=== PATIENT | female | born 1970 | race Caucasian/White ===

== ENCOUNTER 2018-12-01 13:17 | Emergency (ER) | payer OTHER ==
[2018-12-01 13:32] VITALS: TEMP 98.5
[2018-12-01] MEDS ORDERED: DIPH,PERTUS(ACELL)TETVAC-LF 0.5 ML VIAL IM ONE (14:11)
--- NOTE | 2018-12-01 14:13 | ED ---
Wound/Laceration HPI - General Chief Complaint: Wound/Laceration Stated Complaint: Cut fingers with printed circuit board panels trimmer Time Seen by Provider: 12/01/18 14:01 Source: patient Mode of arrival: ambulatory Limitations: no limitations - History of Present Illness Initial Comments: Patient is a 48-year-old female presenting to the emergency Department with complaints of a laceration to her left ring and middle finger that happened prior to arrival. Patient states she was using hedge trimmers and accidentally cut her left 2 fingers. Bleeding is minimal at this time. Patient denies being on blood thinners. Patient does not remember the last time she had a tetanus vaccine. Patient denies any fever, chills, nausea, vomiting. Patient denies any other injuries at this time. Patient has no other complaints. Upon arrival to ER, vital signs are stable. - Related Data Home Medications Medication Instructions Recorded Confirmed Acetaminophen [Tylenol Arthritis] 650 mg PO DAILY PRN 12/01/18 12/01/18 Fish Oil/Dha/Epa [Fish Oil 1,200 1 cap PO DAILY 12/01/18 12/01/18 mg Fish Oil] Fluticasone Nasal [place] [Flonase 2 spr EA NOSTRIL DAILY 12/01/18 12/01/18 Nasal [place]] Multivitamins, Thera [Multivitamin 1 tab PO DAILY 12/01/18 12/01/18 (formulary)] Turmeric Root Extract [Turmeric] 1,000 mg PO DAILY 12/01/18 12/01/18 Ubidecarenone [Co Q-10] 200 mg PO DAILY 12/01/18 12/01/18 Allergies Allergy/AdvReac Type Severity Reaction Status Date / Time No Known Allergies Allergy Verified 12/01/18 13:50 Review of Systems ROS Statement: Those systems with pertinent positive or pertinent negative responses have been documented in the HPI. ROS Other: All systems not noted in ROS Statement are negative. Past Medical History Past Medical History: No Reported History History of Any Multi-Drug Resistant Organisms: None Reported Additional Past Surgical History / Comment(s): Angela russell- 2008 Past Psychological History: No Psychological Hx Reported Smoking Status: Former smoker Past Alcohol Use History: Occasional Past Drug Use History: None Reported General Exam - General Exam Comments Initial Comments: GENERAL: Well-appearing, well-nourished and in no acute distress. HEAD: Atraumatic, normocephalic. EYES: Pupils equal round and reactive to light, extraocular movements intact, sclera anicteric, conjunctiva are normal. ENT: TMs normal, nares patent, oropharynx clear without exudates. Moist mucous membranes. NECK: Normal range of motion, supple without lymphadenopathy or JVD. LUNGS: Breath sounds clear to auscultation bilaterally and equal. No wheezes rales or rhonchi. HEART: Regular rate and rhythm without murmurs, rubs or gallops. ABDOMEN: Soft, nontender, normoactive bowel sounds. No guarding, no rebound. No masses appreciated. : Deferred EXTREMITIES: Normal range of motion, no pitting or edema. No clubbing or cyanosis. NEUROLOGICAL: Cranial nerves II through XII grossly intact. Normal speech, normal gait. PSYCH: Normal mood, normal affect. SKIN: Warm, Dry, normal turgor. Patient has a 1.5 cm laceration to the palmar aspect of her left ring finger, just distal to PIP joint. Patient also has a 1.5 cm laceration to her left middle finger, just distal to her PIP joint. Bleeding is minimal at this time. Patient has full extension and flexion of her left middle and ring fingers. Patient is neurovascular intact. Limitations: no limitations Course Vital Signs 12/01/18 13:29 Temperature 98.5 F Pulse Rate 104 H Respiratory 18 Rate Blood Pressure 174/112 O2 Sat by Pulse 98 Oximetry Procedures - Laceration Laceration #1 Consent Obtained: verbal consent Indication: laceration Site: hand (Left ring finger, palmar aspect, distal to PIP joint.) Size (cm): 0 (1.5cm) Description: linear Depth: simple, single layer Anesthetic Used: lidocaine 1% Anesthesia Technique: local infiltration Amount (mls): 2 Pre-repair: irrigated extensively Type of Sutures: nylon Size of Sutures: 5-0 Number of Sutures: 5 Technique: simple, interrupted Patient Tolerated Procedure: well Laceration #2 Consent Obtained: verbal consent Indication: laceration Site: hand (Left middle finger, palmar aspect, distal to PIP joint) Size (cm): 0 (1.5cm) Description: linear, flap Depth: simple, single layer Anesthetic Used: lidocaine 1% Anesthesia Technique: local infiltration Amount (mls): 2 Pre-repair: irrigated extensively Type of Sutures: nylon Size of Sutures: 5-0 Number of Sutures: 5 Technique: simple, interrupted Patient Tolerated Procedure: well Medical Decision Making - Medical Decision Making Patient is a 48-year-old female presenting with lacerations to her left middle and ring finger to happen prior to arrival. Patient states she was using a printed circuit board panels trimmer when it slipped and she cut the palmar aspect of her 2 fingers. Patient had a 1.5 cm laceration to the left ring finger, palmar aspect, distal to PIP joint. Patient also has a 1.5 cm laceration to the left middle finger, palmar aspect, distal to PIP joint. Patient has full flexion and extension of both fingers. Neurovascular intact. Hand was soaked in Betadine water solution. Both wounds were closed with 5, 5-0 sutures, for a total of 10 sutures. Patient tolerated procedure well. Patient's tetanus vaccine was updated today. Patient is stable for discharge at this time. Return parameters were discussed with the patient she verbalized understanding. Patient will have sutures removed in 10-12 days. Case discussed with Dr. Mohamud. Disposition Clinical Impression: Laceration of left ring finger, Laceration of left middle finger Disposition: HOME SELF-CARE Condition: Stable Instructions (If sedation given, give patient instructions): Care For Your Stitches (DC), Finger Laceration (ED) Additional Instructions: Please return to the Emergency Department if symptoms worsen or any other con cerns. Sutures need to be removed in 10-12 days. Is patient prescribed a controlled substance at d/c from ED?: No Referrals: None,Stated [Primary Care Provider] - 1-2 days
[2018-12-01] MEDS: LIDOCAINE 1% INJ 10MG/ML (20 ML MDV) SQ ONE ×2 (14:22→14:24)
[2018-12-01] MEDS ORDERED: ACET/COD 300 MG/30 MG STARTER PACK 6 TAB BTL PO STA (15:09)
[2018-12-01 15:46] VITALS: BP 144/83; PULSE 80; RESP 16
== END 2018-12-01 15:30 | disposition home or self-care (01) ==
LOC: EC 13:17
DX: S61.213A Laceration without foreign body of left middle finger without damage to nail, initial encounter (principal); S61.215A Laceration without foreign body of left ring finger without damage to nail, initial encounter; Z87.891 Personal history of nicotine dependence; Z79.899 Other long term (current) drug therapy; Z23 Encounter for immunization; W29.3XXA Contact with powered garden and outdoor hand tools and machinery, initial encounter
CPT/HCPCS: 90715; 99282; 12002; 90471; J2001

== ENCOUNTER → 2022-03-13 | Outpatient (CLI) | payer OTHER ==
--- NOTE | 2022-03-13 14:33 | P.BASOAP ---
Subjective Progress Note Date: 03/13/22 Principal diagnosis: Morbid obesity 52-year-old female known to our service. Patient with history of previous laparoscopic band placement. Patient had issues with food getting caught frequently and ended up having her band emptied in the past. It's been many years since she's had any fluid in her band. Patient is interested in conversion to an alternative bariatric surgery at this point because of persistent obesity. Still says she gets food caught occasionally even though her band is empty. Objective - Vital Signs Vital signs: Intake & Output 03/12/22 03/13/22 03/13/22 18:59 06:59 18:59 Weight 137.892 kg - Exam Abdomen: Soft, nontender, nondistended Assessment/Plan (1) Morbid obesity Narrative/Plan: 52-year-old female with morbid obesity. Patient with history of previous laparoscopic band placement. Patient has not tolerated feels previously. I do agree patient would benefit from conversion to alternate. She procedure. We discussed the options of band to sleeve and band to bypass conversions. Increased risk of intractable reflux and inadequate weight loss with sleeve conversion discussed. She will consider conversion to gastric bypass. She will notify me if she would like an appointment to be seen at [facility] bariatric center. Plan: Date: Initial Weight: Initial BMI: Current Weight: 137.892 kg Current BMI: Type of Surgery: Total Volume in Band: Previous Volume: Volume Removed: Volume Added: Band Size:
[2022-03-13 14:45] VITALS: BP 158/117; PULSE 80; TEMP 98; BMI 53.8
== END ==
LOC: BARWHC3 13:57
PROVIDERS: ATTEND Surgery
DX: E66.01 Morbid (severe) obesity due to excess calories (principal); Z87.891 Personal history of nicotine dependence
CPT/HCPCS: 99211

== ENCOUNTER → 2022-06-06 | Outpatient (CLI) | payer OTHER ==
[2022-06-06 14:25] VITALS: BP 173/106; PULSE 72; TEMP 97.8; BMI 53.1
--- NOTE | 2022-06-06 14:55 | P.HPBAR ---
Bariatric H&P - History & Physicial H&P Date: 06/06/22 History & Physicial: Visit/CC: RYGB consult Patient initial contact: Initial weight: Initial weight in pounds: Height: 5 ft 3 in Initial BMI: Last weight: Current weight: 136.078 kg Current weight in pounds: 300.00 Current BMI: 53.1 [place] body weight (based on NIH guidelines): 52.163 kg Excess body weight loss: The patient is a 52 year-old F who presents for Bariatric Assessment. She is looking into the gastric bypass after band 2007 to 2008. She has the band at present. No GERD. No chest pain. She requires conversion from a band to a gastric bypass. New insurance requirements being asked. Recommend EGD to evaluate band and recommend esophagram. She has [place]. Past Medical History Past Medical History: Hyperlipidemia History of Any Multi-Drug Resistant Organisms: None Reported Additional Past Surgical History / Comment(s): Lap band- 2008 Past Anesthesia/Blood Transfusion Reactions: No Reported Reaction Past Psychological History: No Psychological Hx Reported Smoking Status: Never smoker Past Alcohol Use History: Occasional Past Drug Use History: None Reported Surgical - Exam Vital Signs Temp Pulse BP 97.8 F 72 173/106 06/06/22 14:17 06/06/22 14:17 06/06/22 14:17 Bariatric Checklist Checklist: Plan: Checklist: EGD: 1. Hiatal hernia: 2. H. Pylori: HgbA1c: Vitamin D: Smoking: Former smoker Primary care physician referral: SHERITA Plascencia Psychiatry clearance: Cardiology clearance: Sleep study: Diet journal: VTE risk score: VTE risk level: Rehab needs at discharge:
== END ==
LOC: BARWHC3 13:01
PROVIDERS: ATTEND Surgery Plastic and Reconstructive Surgery
DX: E66.01 Morbid (severe) obesity due to excess calories (principal); E78.5 Hyperlipidemia, unspecified; Z68.43 Body mass index [BMI] 50.0-59.9, adult; Z87.891 Personal history of nicotine dependence
CPT/HCPCS: 99211

== ENCOUNTER → 2022-07-04 | Outpatient (CLI) | payer OTHER ==
[2022-07-04 15:52] LABS: INR 0.9 (<1.2); Prothrombin Time 9.6 sec (9.0-12.0)
[2022-07-04 15:59] LABS: Partial Thromboplastin Time 21.9 sec (22.0-30.0)
[2022-07-04 20:37] LABS: HCT 42.3 % (37.2-46.3); HGB 13.7 g/dL (12.0-15.0); MCHC 32.4 g/dL (32.0-37.0); MCV 92.8 fL (80.0-97.0); NRBC Per 100 WBC 0 /100 WBCS (0.0-0.0); Platelet Count 270 X 10*3/uL (140-440); RBC 4.56 X 10*6/uL (4.10-5.20); RDW 12.9 % (11.5-14.5)
[2022-07-04 21:15] LABS: ALT 30 U/L (8-44); AST 24 U/L (13-35); African American GFR (CKD) 120.8 (60.0-200.0); Albumin 4.2 g/dL (3.8-4.9); Albumin/Globulin Ratio 1.23 (1.60-3.17); Alkaline Phosphatase 89 U/L (41-126); BUN/Creat Ratio 28.57 Ratio (12.00-20.00); Blood Urea Nitrogen 17.8 mg/dL (9.0-27.0); Calcium 9.9 mg/dL (8.7-10.3); Carbon Dioxide 24.4 mmol/L (20.0-27.5); Chloride 103 mmol/L (96-109); Chol/HDL Ratio 4.19 Ratio; Globulin 3.5 g/dL (1.6-3.3); Glucose 94 mg/dL (70-110); LDL Cholesterol,Calculated 118.4 mg/dL (0.0-131.0); Magnesium 2.1 mg/dL (1.5-2.4); Non-African American GFR(CKD) 104.2 (60.0-200.0); Phosphorus 3.9 mg/dL (2.4-5.1); Potassium 4.3 mmol/L (3.5-5.5); Prealbumin 24.6 mg/dL (18.0-42.0); Sodium 139 mmol/L (135-145); Total Protein 7.7 g/dL (6.2-8.2)
[2022-07-05 14:00] LABS: Zinc, Serum 60 ug/dL (60-130)
[2022-07-06 06:25] LABS: Vitamin A 65 ug/dL (38-106)
[2022-07-09 15:12] LABS: Vit B1(Thiamine) 90 ug/L (38-122)
[2022-07-09 16:27] LABS: Anabasine Urine <2.0 ng/mL (<2.0)
[2022-07-10 01:59] LABS: Selenium 160 mcg/L (63-160)
== END | disposition home or self-care (01) ==
LOC: LABWHC1 13:23
PROVIDERS: ATTEND Surgery Plastic and Reconstructive Surgery
DX: Z71.51 Drug abuse counseling and surveillance of drug abuser (principal); E89.1 Postprocedural hypoinsulinemia; D50.8 Other iron deficiency anemias; K91.2 Postsurgical malabsorption, not elsewhere classified; E44.0 Moderate protein-calorie malnutrition; E44.1 Mild protein-calorie malnutrition; E45 Retarded development following protein-calorie malnutrition; E66.01 Morbid (severe) obesity due to excess calories; E46 Unspecified protein-calorie malnutrition; E55.9 Vitamin D deficiency, unspecified; K74.1 Hepatic sclerosis; N19 Unspecified kidney failure; T59.894A Toxic effect of other specified gases, fumes and vapors, undetermined, initial encounter; K50.90 Crohn's disease, unspecified, without complications
CPT/HCPCS: 84255; 84134; 84425; 80061; 80053; 82607; 82525; 82746; 83735; 84100; 84443; 84590; 84630; 85027; 85610; 85730; 82306; 83970; 83036; 93005; 36415; G0480; 80323

== ENCOUNTER 2022-07-30 08:28 | Day surgery (SDC) | payer OTHER ==
[2022-07-25 12:32] VITALS: BMI 53.1
--- NOTE | 2022-07-30 07:45 | P.GSHP ---
History of Present Illness H&P Date: 07/30/22 CHIEF COMPLAINT: GERD HISTORY OF PRESENT ILLNESS: The patient is a 52-year-old female who presents reports gastroesophageal reflux disease. Upper endoscopy was offered for further evaluation and management. PAST MEDICAL HISTORY: Please see list. PAST SURGICAL HISTORY: Please see list. MEDICATIONS: Please see list. ALLERGIES: Please see list. SOCIAL HISTORY: No illicit drug use FAMILY HISTORY: No reports of Crohn disease or ulcerative colitis. REVIEW OF ORGAN SYSTEMS: CONSTITUTIONAL: No reports of fevers or chills. GI: Denies any blood in stools or constipation. PHYSICAL EXAM: VITAL SIGNS: Stable GENERAL: Well-developed and pleasant in no acute distress. HEENT: No scleral icterus. Extraocular movements grossly intact. Moist buccal mucosa. NECK: Supple without lymphadenopathy. CHEST: Unlabored respirations. Equal bilateral excursions. CARDIOVASCULAR: Regular rate and rhythm. Distal 2+ pulses. ABDOMEN: Soft, nondistended. MUSCULOSKELETAL: No clubbing, cyanosis, or edema. ASSESSMENT: 1. Gastroesophageal reflux disease PLAN: 1. Recommend proceeding with an upper endoscopy Past Medical History Past Medical History: Hyperlipidemia History of Any Multi-Drug Resistant Organisms: None Reported Past Surgical History: Bariatric Surgery Additional Past Surgical History / Comment(s): Lap band- 2008 Past Anesthesia/Blood Transfusion Reactions: No Reported Reaction Past Psychological History: No Psychological Hx Reported Smoking Status: Never smoker Past Alcohol Use History: Occasional Past Drug Use History: None Reported Medications and Allergies Home Medications Medication Instructions Recorded Confirmed Type Acetaminophen [Tylenol Arthritis] 650 mg PO DAILY PRN 12/01/18 07/25/22 History Fish Oil/Dha/Epa [Fish Oil 1,200 1 cap PO DAILY 12/01/18 07/25/22 History mg Fish Oil] Multivitamins, Thera [Multivitamin 1 tab PO DAILY 12/01/18 07/25/22 History (formulary)] Turmeric Root Extract [Turmeric] 1,000 mg PO DAILY 12/01/18 07/25/22 History Bergamot Extract [Bergacor] 650 mg PO DAILY 06/06/22 07/25/22 History Semaglutide [Wegovy] 1 mg SQ WEEKLY 06/06/22 07/25/22 History Meloxicam 7.5 mg PO DAILY 07/25/22 07/25/22 History Allergies Allergy/AdvReac Type Severity Reaction Status Date / Time No Known Allergies Allergy Verified 07/25/22 12:19
[2022-07-30 08:53] VITALS: TEMP 98.1
[2022-07-30] MEDS ORDERED: LACTATED RINGERS 1,000 ML IV ONE (09:05)
[2022-07-30] MEDS ORDERED: PROPOFOL 10 MG/ML 20 ML VIAL IV ONE (09:09)
[2022-07-30] MEDS ORDERED: LIDOCAINE 2% INJ 20 MG/ML (2 ML VIAL) ONE (09:09)
[2022-07-30 09:25] VITALS: BP 138/86; PULSE 81; RESP 16
--- NOTE | 2022-07-30 09:28 | P.GSHP ---
History of Present Illness H&P Date: 07/30/22 PREOPERATIVE DIAGNOSIS: Gastroesophageal reflux disease. Morbid obesity. POSTOPERATIVE DIAGNOSIS: Gastroesophageal reflux disease. Morbid obesity. Gastritis. Diaphragmatic hiatal hernia Adjustable gastric band status OPERATION: Esophagogastroduodenoscopy with biopsies along antrum and duodenum SURGEON: Maya Dobson MD ANESTHESIA: MAC. INDICATIONS: The patient is a 52-year-old female who presents with reflux disease. Benefits and risks of the procedure were described. Informed consent was obtained. DESCRIPTION: The patient was brought into the endoscopy suite and laid in the left lateral decubitus position. An Olympus gastroscope was passed along the posterior oropharynx down to the distal esophagus where the squamocolumnar junction was encountered at 35 cm from the incisors. The stomach was entered and no bile reflux was found. Additional findings are listed below. Biopsies with cold forceps were obtained of the antrum. The first through third portion of the duodenum was examined. Retroflexion of the scope confirmed Hill grade 3 lower esophageal valve. The squamocolumnar junction demonstrated LA grade B erosive esophagitis. The stomach was desufflated. The patient tolerated the procedure well. FINDINGS: Squamocolumnar junction 35 cm from the incisors. Diaphragmatic hiatus at 40 cm. Hiatal hernia, 5 cm Hill grade 4 lower esophageal valve. LA grade B erosive esophagitis. No active duodenitis. Adjustable gastric band present without erosion Chronic gastritis with recent bleed RECOMMENDATIONS: Upper endoscopy as needed. Past Medical History Past Medical History: Hyperlipidemia History of Any Multi-Drug Resistant Organisms: None Reported Past Surgical History: Bariatric Surgery Additional Past Surgical History / Comment(s): Lap band- 2008 Past Anesthesia/Blood Transfusion Reactions: No Reported Reaction Past Psychological History: No Psychological Hx Reported Smoking Status: Never smoker Past Alcohol Use History: Occasional Past Drug Use History: None Reported Medications and Allergies Home Medications Medication Instructions Recorded Confirmed Type Acetaminophen [Tylenol Arthritis] 650 mg PO DAILY PRN 12/01/18 07/30/22 History Fish Oil/Dha/Epa [Fish Oil 1,200 1 cap PO DAILY 12/01/18 07/30/22 History mg Fish Oil] Multivitamins, Thera [Multivitamin 1 tab PO DAILY 12/01/18 07/30/22 History (formulary)] Turmeric Root Extract [Turmeric] 1,000 mg PO DAILY 12/01/18 07/30/22 History Bergamot Extract [Bergacor] 650 mg PO DAILY 06/06/22 07/30/22 History Semaglutide [Wegovy] 1 mg SQ WEEKLY 06/06/22 07/30/22 History Meloxicam 7.5 mg PO DAILY 07/25/22 07/30/22 History Allergies Allergy/AdvReac Type Severity Reaction Status Date / Time No Known Allergies Allergy Verified 07/30/22 08:47 Surgical - Exam Vital Signs Temp Pulse Resp BP Pulse Ox 98.1 F 88 18 155/89 97 07/30/22 08:51 07/30/22 08:51 07/30/22 08:51 07/30/22 08:51 07/30/22 08:51
--- NOTE | 2022-07-30 09:31 | P.PCN ---
Date of Procedure: 07/30/22 Description of Procedure: PREOPERATIVE DIAGNOSIS: Gastroesophageal reflux disease. Morbid obesity. POSTOPERATIVE DIAGNOSIS: Gastroesophageal reflux disease. Morbid obesity. Gastritis. Diaphragmatic hiatal hernia Adjustable gastric band status OPERATION: Esophagogastroduodenoscopy with biopsies along antrum and duodenum SURGEON: Maya Dobson MD ANESTHESIA: MAC. INDICATIONS: The patient is a 52-year-old female who presents with reflux disease. Benefits and risks of the procedure were described. Informed consent was obtained. DESCRIPTION: The patient was brought into the endoscopy suite and laid in the left lateral decubitus position. An Olympus gastroscope was passed along the posterior [place] pharynx down to the distal esophagus where the squamocolumnar junction was encountered at 35 cm from the incisors. The stomach was entered and no bile reflux was found. Additional findings are listed below. Biopsies with cold forceps were obtained of the antrum. The first through third portion of the duodenum was examined. Retroflexion of the scope confirmed Hill grade 3 lower esophageal valve. The squamocolumnar junction demonstrated LA grade B erosive esophagitis. The stomach was desufflated. The patient tolerated the procedure well. FINDINGS: Squamocolumnar junction 35 cm from the incisors. Diaphragmatic hiatus at 40 cm. Hiatal hernia, 5 cm Hill grade 4 lower esophageal valve. LA grade B erosive esophagitis. No active duodenitis. Adjustable gastric band present without erosion Chronic gastritis with recent bleed RECOMMENDATIONS: Upper endoscopy as needed. Plan - Discharge Summary Discharge Rx Participant: No New Discharge Prescriptions: Continue Acetaminophen [Tylenol Arthritis] 650 mg PO DAILY PRN PRN Reason: Pain Turmeric Root Extract [Turmeric] 1,000 mg PO DAILY Multivitamins, Thera [Multivitamin (formulary)] 1 tab PO DAILY Fish Oil/Dha/Epa [Fish Oil 1,200 mg Fish Oil] 1 cap PO DAILY Semaglutide [Wegovy] 1 mg SQ WEEKLY Bergamot Extract [Bergacor] 650 mg PO DAILY Meloxicam 7.5 mg PO DAILY Discharge Medication List Acetaminophen [Tylenol Arthritis] 650 mg PO DAILY PRN 12/01/18 [History] Fish Oil/Dha/Epa [Fish Oil 1,200 mg Fish Oil] 1 cap PO DAILY 12/01/18 [History] Multivitamins, Thera [Multivitamin (formulary)] 1 tab PO DAILY 12/01/18 [History] Turmeric Root Extract [Turmeric] 1,000 mg PO DAILY 12/01/18 [History] Bergamot Extract [Bergacor] 650 mg PO DAILY 06/06/22 [History] Semaglutide [Wegovy] 1 mg SQ WEEKLY 06/06/22 [History] Meloxicam 7.5 mg PO DAILY 07/25/22 [History] [place] Patient Instructions/Handouts: Hiatal Hernia (DC) Discharge Disposition: HOME SELF-CARE
== END 2022-07-30 10:00 | disposition home or self-care (01) ==
LOC: ORWHC2ENDO 08:28
PROVIDERS: ATTEND Surgery Plastic and Reconstructive Surgery
DX: K29.50 Unspecified chronic gastritis without bleeding (principal); K21.9 Gastro-esophageal reflux disease without esophagitis; K44.9 Diaphragmatic hernia without obstruction or gangrene; E66.01 Morbid (severe) obesity due to excess calories; E78.5 Hyperlipidemia, unspecified; Z86.59 Personal history of other mental and behavioral disorders; Z79.1 Long term (current) use of non-steroidal anti-inflammatories (NSAID); Z79.899 Other long term (current) drug therapy; Z68.43 Body mass index [BMI] 50.0-59.9, adult
CPT/HCPCS: 43239; J2704; J2001; 88305

== ENCOUNTER → 2022-08-15 | Outpatient (CLI) | payer OTHER ==
[2022-08-15 13:11] VITALS: BP 173/118; PULSE 99; TEMP 98.2; BMI 52.9
--- NOTE | 2022-08-15 13:59 | P.BASOAP ---
Subjective Progress Note Date: 08/15/22 Needs conversion to bypass from band. She has troubles with her band. She has hypertensive heart disease, persistent of 173/118. She reports sleep apnea. She has high cholesterol. Recommend 2 stage procedure for best safety profile from band to bypass. Chele has her gallbladder. Must look at gallbladder for any further issues interoperatively. Objective - Vital Signs Vital signs: Vital Signs Temp 98.2 F 08/15/22 13:08 Pulse 99 08/15/22 13:08 Resp BP 173/118 08/15/22 13:08 Pulse Ox FiO2 Intake & Output 08/14/22 08/15/22 08/15/22 18:59 06:59 18:59 Weight 135.624 kg Assessment/Plan Plan: Date: 08/15/22 Initial Weight: Initial BMI: Current Weight: 135.624 kg Current BMI: 52.9 Type of Surgery: Total Volume in Band: Previous Volume: Volume Removed: Volume Added: Band Size:
== END ==
LOC: BARWHC3 12:47
PROVIDERS: ATTEND Surgery Plastic and Reconstructive Surgery
DX: E66.01 Morbid (severe) obesity due to excess calories (principal); Z46.51 Encounter for fitting and adjustment of gastric lap band; Z68.43 Body mass index [BMI] 50.0-59.9, adult; Z87.891 Personal history of nicotine dependence
CPT/HCPCS: 99211

== ENCOUNTER → 2022-08-27 | Outpatient (CLI) | payer OTHER ==
[2022-08-27 10:53] VITALS: BMI 52.4
--- NOTE | 2022-08-27 11:00 | XR ---
EXAMINATION TYPE: XR chest 1V DATE OF EXAM: 08/27/2022 COMPARISON: NONE HISTORY: Preop TECHNIQUE: Single frontal view of the chest is obtained. FINDINGS: There is no focal air space opacity, pleural effusion, or pneumothorax seen. The cardiac silhouette size is within normal limits. The osseous structures are intact. A postsurgical change s uggestive of lap band surgery noted. There is hyperinflation suggestive of COPD. IMPRESSION: No acute process. Correlate for asthma or COPD.
== END ==
LOC: BARWHC3 08:39
PROVIDERS: ATTEND Surgery Plastic and Reconstructive Surgery
DX: E66.01 Morbid (severe) obesity due to excess calories (principal); G47.33 Obstructive sleep apnea (adult) (pediatric); Z68.43 Body mass index [BMI] 50.0-59.9, adult; Z87.891 Personal history of nicotine dependence; Z71.3 Dietary counseling and surveillance
CPT/HCPCS: 71045; 97804

== ENCOUNTER → 2022-11-21 | Outpatient (CLI) | payer OTHER ==
[2022-11-21 16:05] LABS: ALT 34 U/L (8-44); AST 30 U/L (13-35); Albumin 4.3 d/dL (3.8-4.9); Alkaline Phosphatase 68 U/L (41-126); BUN/Creat Ratio 23.33 Ratio (12.00-20.00); Calcium 9.4 mg/dL (8.7-10.3); Carbon Dioxide 20.8 mmol/L (21.6-31.8); Chloride 107 mmol/L (96-109); Globulin 3.3 d/dL (1.6-3.3); Glucose 87 mg/dL (70-110); Potassium 4.3 mmol/L (3.5-5.5); Sodium 141 mmol/L (135-145); Total Bilirubin 0.5 mg/dL (0.3-1.2); Total Protein 7.6 d/dL (6.2-8.2)
[2022-11-21 16:29] LABS: HGB 13.7 d/dL (12.0-15.0); MCH 30.4 pg (27.0-32.0); MCHC 32.6 d/dL (32.0-37.0); MCV 93.1 FL (80.0-97.0); Mean Platelet Volume 11.1 FL (9.5-12.2); NRBC Per 100 WBC 0 X 10*3/uL (0.00-0.01); Platelet Count 287 X 10*3/uL (140-440); RBC 4.51 X 10*6/uL (4.10-5.20); RDW 12.7 % (11.5-14.5)
[2022-11-21 16:30] LABS: Basophils # (A) 0.08 X 10*3/uL (0.00-0.10); Basophils % (A) 1.4 %; Eosinophils # (A) 0.16 X 10*3/uL (0.04-0.35); Eosinophils % (A) 2.8 %; Lymphocytes # (A) 2.31 X 10*3/uL (0.90-5.00); Lymphocytes % (A) 40.5 %; Monocytes # (A) 0.48 X 10*3/uL (0.20-1.00); Monocytes % (A) 8.4 %; Neutrophils # (A) 2.64 X 10*3/uL (1.80-7.70); Neutrophils % (A) 46.4 %
== END | disposition home or self-care (01) ==
LOC: LABPAT 10:10
PROVIDERS: ATTEND Surgery Plastic and Reconstructive Surgery
DX: Z01.812 Encounter for preprocedural laboratory examination (principal)
CPT/HCPCS: 80053; 85025

== ENCOUNTER 2022-11-23 12:45 | Day surgery (SDC) | payer OTHER ==
[2022-11-22 09:42] VITALS: BMI 48.0
--- NOTE | 2022-11-23 11:59 | P.GSHP ---
History of Present Illness H&P Date: 11/23/22 CHIEF COMPLAINT: Complications adjustable gastric band HISTORY OF PRESENT ILLNESS: The patient is a 52-year-old female who presents with morbid obesity. Has adjustable gastric band erosions over one year. He has chronic dysphagia and intolerance to band adjustments. Now she presents for surgical intervention. PAST MEDICAL HISTORY: Please see list PAST SURGICAL HISTORY: Please see list MEDICATIONS: Please see list ALLERGIES: Please see list SOCIAL HISTORY: Please see list FAMILY HISTORY: Please see list REVIEW OF ORGAN SYSTEMS: CONSTITUTIONAL: No reports of fevers or chills. HEENT: Denies any troubles with the vision or hearing. ENDOCRINE: No reports of hypothyroidism. No diabetes. RESPIRATORY: No recent pneumonias. CARDIOVASCULAR: Denies chest pain or palpitations GI: No blood in stools or constipation. MUSCULOSKELETAL: Has occasional joint pain including back pain. NEURO: No seizure disorders or headaches. No recent stroke. PSYCH: No depression or suicidal ideation. GENITOURINARY: No active blood in urine. No urinary hesitancy. HEMATOLOGIC: No personal or family history of DVTs or pulmonary emboli. SKIN: No skin cancer. PHYSICAL EXAM: VITAL SIGNS: Afebrile vital signs stable GENERAL: Well-developed pleasant in no acute distress. HEENT: No scleral icterus. Extraocular movements grossly intact. Moist buccal mucosa. NECK: Supple without lymphadenopathy. CHEST: Unlabored respirations. Equal bilateral excursions. CARDIOVASCULAR: Regular rate regular rhythm rhythm. Distal 2+ pulses. ABDOMEN: Soft, nondistended. MUSCULOSKELETAL: No clubbing, cyanosis, or edema. NEURO: Cranial nerves II to XII within normal limits. No focal or lateralizing signs. PSYCH: Alert and oriented to person, place and time. SKIN: Well-perfused good skin turgor. ASSESSMENT: 1. Morbid obesity due to excess calories, BMI 48.1 2. Complications of adjustable gastric band PLAN: 1. Will need a robotic palpable adjustable gastric band possible open. Benefits and risks were described. 2. Heparin for DVT prophylaxis 5000 units. 3. Antibiotic prophylaxis. 4. CBC and CMP on day of procedure 5. Non-narcotic pre and post op pain management reviewed. Past Medical History Past Medical History: Hyperlipidemia History of Any Multi-Drug Resistant Organisms: None Reported Past Surgical History: Bariatric Surgery Additional Past Surgical History / Comment(s): Lap band- 2008 Past Anesthesia/Blood Transfusion Reactions: No Reported Reaction Past Psychological History: No Psychological Hx Reported Smoking Status: Never smoker Past Alcohol Use History: Occasional Past Drug Use History: None Reported - Past Family History Mother Family Medical History: No Reported History Medications and Allergies Home Medications Medication Instructions Recorded Confirmed Type Semaglutide [Wegovy] 1 mg SQ WEEKLY 06/06/22 11/22/22 History Meloxicam 7.5 mg PO DAILY 07/25/22 11/22/22 History Allergies Allergy/AdvReac Type Severity Reaction Status Date / Time No Known Allergies Allergy Verified 11/22/22 09:37
[~2022-11-23 12:45] MED LIST: ACETAMINOPHEN TAB 500 MG TAB PO PRN; HEPARIN SODIUM,PORCINE/PF 5,000 UNIT/0.5 ML SYRINGE SQ PRN; LACTATED RINGERS 1,000 ML IV SCH; ONDANSETRON 4 MG/2 ML VIAL IVP PRN; SCOPOLAMINE 1 MG/72 HR PATCH TRANSDERM STA; ceFAZolin 3 GM in SODIUM CHLORIDE 0.9% 100 ML IVPB PRN
[2022-11-23] MEDS ORDERED: ONDANSETRON 4 MG/2 ML VIAL IVP ONE (13:37)
[2022-11-23] MEDS ORDERED: DEXAMETHASONE SOD PHOSPHATE 4 MG/ML 1 ML VIAL IVP ONE (13:38)
[2022-11-23] MEDS ORDERED: SUCCINYLCHOLINE CHLORIDE 200 MG/10 ML VIAL IV ONE (13:52)
[2022-11-23] MEDS ORDERED: fentaNYL (PF) 50 MCG/ML 2 ML AMP ONE (13:52)
[2022-11-23] MEDS ORDERED: PROPOFOL 10 MG/ML 20 ML VIAL IV ONE (13:52)
[2022-11-23] MEDS ORDERED: GLYCOPYRROLATE 0.2 MG/ML 2 ML VIAL ONE (13:52)
[2022-11-23] MEDS ORDERED: NEOSTIGMINE 1 MG/ML 10 ML VIAL ONE (13:52)
[2022-11-23] MEDS ORDERED: LIDOCAINE 2% INJ 20 MG/ML (2 ML VIAL) ONE (13:52)
[2022-11-23] MEDS ORDERED: ROCURONIUM 10 MG/ML (5 ML VIAL) IV ONE (13:52)
[2022-11-23] MEDS ORDERED: MIDAZOLAM 2 MG/2 ML VIAL ONE (13:52)
[2022-11-23] MEDS ORDERED: BUPIVACAINE (PF) 0.5% 30 ML VIAL SQ ONE ×2 (14:20→14:24)
[2022-11-23 15:48] VITALS: TEMP 97
[2022-11-23] MEDS ORDERED: HYDROmorphone 0.5 MG/0.5 ML SYRINGE IVP ONE ×2 (16:06→16:17)
--- NOTE | 2022-11-23 16:39 | P.OP ---
Date of Procedure: 11/23/22 Description of Procedure: SURGEON: KIKA RICHARD MD PREOPERATIVE DIAGNOSES: 1. Morbid obesity due to excess calories 2. Body mass index of 49.4 3. Gastroesophageal reflux disease 4. Dysphagia 5. Complications from adjustable gastric band POSTOPERATIVE DIAGNOSES: 1. Morbid obesity due to excess calories 2. Body mass index of 49.4 3. Gastroesophageal reflux disease 4. Dysphagia 5. Complications from adjustable gastric band 6. Severe perigastric adhesions 7. Severe epigastric OPERATION: 1. Robotic-assisted da Jalyn Xi laparoscopic lysis of adhesions over 30 minutes. 2. Esophagogastroduodenoscopy with cold forcep biopsies duodenum and antrum (see separate procedure note) 3. Robotic-assisted da Jalyn Xi laparoscopic removal of adjustable gastric band and all components. ANESTHESIA: General with local anesthetic. ESTIMATED BLOOD LOSS: 5 mL SPECIMENS REMOVED: 1. Adjustable gastric band and components 2. Duodenal 3. Antrum Condition: stable Disposition: same day COMPLICATIONS: None. Operative Findings: 1. Adjustable gastric band port found along the epigastrium removed in total 2. Densely encased adjustable gastric band removed in total 3. Severe perigastric and epigastric intra-abdominal adhesions from adjustable gastric band INDICATIONS: The patient is a 52-year-old male who presents with complications of her adjustable gastric band. Surgical options were described including removal of the band. As she has persistent pain and discomfort from the band, removal of the adjustable gastric band and port including all components was proposed. Benefits and risks of the procedure were described. Informed consent was obtained. DESCRIPTION: The patient was brought into the operating room theater. She was placed supine. She had received heparin subcutaneously for DVT prophylaxis. Additionally she Peridex oral solution as an oral decontaminant was placed per anesthesia. After general induction, the abdomen was prepped and draped in standard sterile fashion. Ioban draping was placed along the abdomen. A robotic da Jalyn Xi system was prepped and primed. Prior to incision, a timeout protocol was performed and confirmed with the surgical team. Attention was brought to the abdomen where the port was palpated along the epigastrium. After localizing the skin, transverse 3 cm incision was made over the adjustable gastric band port and circumferentially dissected free using Bovie cautery and blunt dissection. Attention was now brought to the intra-abdominal component of the procedure for the removal of the adjustable gastric band. Incisions were proposed at 12 cm from the xiphoid. Proposed port sites were marked with indelible marker along the anterior axillary line bilaterally, mid clavicular line bilaterally with each port marked 10 cm from each other. A 5 mm 0 degrees laparoscopic trocar entry was performed along the left upper quadrant. The abdomen was insufflated to 15 mmHg pressure, which she tolerated well. Diagnostic laparoscopy demonstrated no injury to bowel, viscera, or mesentery. An 8 mm camera port was placed left lateral to the umbilicus at the epigastrium, 12 cm distal to the xiphoid. Next, 8-mm port was placed along the right mid abdomen. The 5 mm port was exchanged for 12 mm trocar. The robot was docked along the left lateral abdomen. The patient was repositioned in reverse Trendelenburg position, 21-degrees. A 30-degree camera was used. Using graspers for arm 3, including scissors with cautery for arm 1, and hook cautery was used for arm 4. the robotic system was docked and primed as described. Instruments were interchanged by the delinquent tax collection assistant. I had sat at the console. Adjustable gastric band was embedded into dense cicatrix which was carefully dissected free. Additionally, the buckle of the adjustable gastric band was densely adherent to the deep tissue requiring cutting the band away from the buckle. The port was followed with its tubing to the gastric band. The gastrohepatic ligament was scarred from prior surgery. The cicatrix around the adjustable gastric band was carefully dissected free. The anti-prolapse stitch was intact. Using hot cautery, the cicatrix of the port was incised. The band was then freed. Allergan adjustable gastric band was removed in total. Care was taken to avoid any gastrotomies. The band buckle was cut. I then went to the head of the bed to perform intraoperative esophagogastroduodenoscopy to evaluate for gastritis and any full thickness injury to the stomach. An Olympus gastroscope was passed from the posterior oropharynx down to the esophagus, where the squamocolumnar junction was found LA grade C erosive esophagitis, chronic changes. The stomach was entered. Mild chronic gastritis was found along the antrum with biopsies obtained of the antrum and duodenal. Retroflexion of the scope confirmed a Hill grade 2 lower esophageal valve. No full-thickness erosion from the prior band was encountered. The stomach was desufflated. The patient tolerated the procedure well. No evidence of leak was encountered from the removal of the band. The scope was removed with desufflation of the stomach. I re-scrubbed into the case. The port and band were removed in total without injury to the stomach via the epigastrium including the cut buckle. Hemostasis was excellent. Diagnostic laparoscopy demonstrated complete removal of all foreign body. All instruments and pneumoperitoneum were evacuated from the abdominal cavity. The port extraction site was hemostatic. The port site was irrigated using normal saline and hydrogen peroxide. The incisions were reapproximated using 4- 0 Monocryl in a subcuticular interrupted fashion. Optifoam dressing was placed over the port extraction site. At the end of the procedure, needle, sponge and instrument counts were verified correct by the cardiovascular surgical tech. The patient had tolerated the procedure well. An abdominal binder was placed. The patient was transferred to Postanesthesia Care Unit in stable condition. Postoperative findings with intraoperative images were discussed with the patient's family who were pleased with the level of care. Plan - Discharge Summary Discharge Rx Participant: No New Discharge Prescriptions: New Simethicone [Gas-X] 125 mg PO AC-TID PRN #20 capsule PRN Reason: Pain Ibuprofen [Motrin] 600 mg PO Q8HR PRN #30 tab PRN Reason: Pain Acetaminophen Tab [Tylenol Tab] 1,000 mg PO Q6HR PRN #30 tablet PRN Reason: Pain Continue Semaglutide [Wegovy] 1 mg SQ WEEKLY Meloxicam 7.5 mg PO DAILY Discharge Medication List Semaglutide [Wegovy] 1 mg SQ WEEKLY 06/06/22 [History] Meloxicam 7.5 mg PO DAILY 07/25/22 [History] Acetaminophen Tab [Tylenol Tab] 1,000 mg PO Q6HR PRN #30 tablet 11/23/22 [Rx] Ibuprofen [Motrin] 600 mg PO Q8HR PRN #30 tab 11/23/22 [Rx] Simethicone [Gas-X] 125 mg PO AC-TID PRN #20 capsule 11/23/22 [Rx] Follow up Appointment(s)/Referral(s): [place], [place] [NON-STAFF] - 11/28/22 Patient Instructions/Handouts: Adjustable Gastric Band Removal (GEN), Nutrition after Bariatric Surgery (DC) Activity/Diet/Wound Care/Special Instructions: No lifting over 10 pounds in 2 weeks until Dec 07July shower. No bath tub soaks for two weeks until Dec 07 Diet as tolerated. Use Tylenol, simethicone and ibuprofen or Aleve scheduled for the next 24-48 hours for best pain relief. Use ice along incisions for today to prevent swelling. Discharge Disposition: HOME SELF-CARE
[2022-11-23 17:07] VITALS: RESP 18
[2022-11-23 17:33] VITALS: BP 167/98; PULSE 94
== END 2022-11-23 17:50 | disposition home or self-care (01) ==
LOC: OR 12:45
PROVIDERS: ATTEND Surgery Plastic and Reconstructive Surgery
DX: K29.50 Unspecified chronic gastritis without bleeding (principal); K95.09 Other complications of gastric band procedure; E66.01 Morbid (severe) obesity due to excess calories; E78.5 Hyperlipidemia, unspecified; K21.9 Gastro-esophageal reflux disease without esophagitis; Z98.84 Bariatric surgery status; Z68.42 Body mass index [BMI] 45.0-49.9, adult; Y83.8 Other surgical procedures as the cause of abnormal reaction of the patient, or of later complication, without mention of misadventure at the time of the procedure
CPT/HCPCS: 43239; 81025; 88305; J2250; J0330; J1100; J2710; J0690; J2405; J3010; J2704; J1170; J1644; J2001; J0665

== ENCOUNTER → 2022-12-27 | Outpatient (CLI) | payer OTHER ==
[2022-12-27 16:54] LABS: Basophils # (A) 0.08 X 10*3/uL (0.00-0.10); Eosinophils # (A) 0.47 X 10*3/uL (0.04-0.35); Eosinophils % (A) 5.6 %; HCT 47.2 % (37.2-46.3); HGB 15.3 d/dL (12.0-15.0); Lymphocytes # (A) 2.15 X 10*3/uL (0.90-5.00); Lymphocytes % (A) 25.7 %; MCH 30.7 pg (27.0-32.0); MCHC 32.4 d/dL (32.0-37.0); MCV 94.6 FL (80.0-97.0); Mean Platelet Volume 11.5 FL (9.5-12.2); Monocytes # (A) 0.68 X 10*3/uL (0.20-1.00); Monocytes % (A) 8.1 %; NRBC Per 100 WBC 0 X 10*3/uL (0.00-0.01); Neutrophils # (A) 4.97 X 10*3/uL (1.80-7.70); Neutrophils % (A) 59.2 %; Platelet Count 187 X 10*3/uL (140-440); RBC 4.99 X 10*6/uL (4.10-5.20); RBC Morphology Normal (Normal); RDW 13.1 % (11.5-14.5); WBC 8.38 X 10*3/uL (4.50-10.00)
[2022-12-27 17:54] LABS: ALT 47 U/L (8-44); AST 57 U/L (13-35); Albumin 4.4 d/dL (3.8-4.9); Albumin/Globulin Ratio 1.13 Ratio (1.60-3.17); Alkaline Phosphatase 76 U/L (41-126); Blood Urea Nitrogen 15.4 mg/dL (9.0-27.0); Carbon Dioxide 21.9 mmol/L (21.6-31.8); Chloride 102 mmol/L (96-109); Globulin 3.9 d/dL (1.6-3.3); Glucose 100 mg/dL (70-110); Potassium 5.4 mmol/L (3.5-5.5); Sodium 137 mmol/L (135-145); Total Bilirubin 0.4 mg/dL (0.3-1.2); Total Protein 8.3 d/dL (6.2-8.2)
== END | disposition home or self-care (01) ==
LOC: LABPAT 09:06
PROVIDERS: ATTEND Surgery Plastic and Reconstructive Surgery
DX: Z01.812 Encounter for preprocedural laboratory examination (principal)
CPT/HCPCS: 80053; 85025; 86850; 86900; 86901

== ENCOUNTER → 2023-01-02 | Outpatient (CLI) | payer OTHER ==
[2023-01-02 16:54] VITALS: BMI 49.4
--- NOTE | 2023-01-02 17:25 | P.BASOAP ---
Subjective Progress Note Date: 01/02/23 She has moderate scar tissue. Wants to do weight loss. 3 weeks weight loss advised. Plan for surgery in March. She has constipation. Lactulose prescribed Objective - Vital Signs Vital signs: Intake & Output 01/01/23 01/02/23 01/02/23 18:59 06:59 18:59 Weight 126.552 kg Assessment/Plan Plan: Date: 01/02/23 Initial Weight: Initial BMI: Current Weight: 126.552 kg Current BMI: 49.4 Type of Surgery: Total Volume in Band: Previous Volume: Volume Removed: Volume Added: Band Size:
== END ==
LOC: BARWHC3 16:01
PROVIDERS: ATTEND Surgery Plastic and Reconstructive Surgery
DX: Z53.9 Procedure and treatment not carried out, unspecified reason (principal)
CPT/HCPCS: 99211

== ENCOUNTER 2023-04-01 12:00 | Inpatient (IN) | payer OTHER ==
--- NOTE | 2023-04-22 06:05 | P.GSHP ---
History of Present Illness H&P Date: 04/22/23 CHIEF COMPLAINT: Morbid obesity HISTORY OF PRESENT ILLNESS: Lyssa Haley is a 53 -year-old female who comes with lifelong morbid obesity. As result of morbid obesity, she has developed osteoarthritis of the hips and knees. She has completed medical supervised weight loss. She completed medical including cardiac assessment. She has completed psychological risk assessment. She had removal of adjustable gastric band including lysis of adhesions. She elected for gastric bypass with removal increased risks. At height of 5 feet 3 inches, her ideal body weight is 140 pounds. Her highest weight 303 pounds, BMI 53.8. She comes in 270 pounds. Her body mass index is 46.3. She is 126 pounds overweight. PAST MEDICAL HISTORY: 1. Morbid obesity due to excess calories 2. Body mass index of 53.8 3. Osteoarthritis of the knees. 4. Osteoarthritis of the lower back. 5. Hypertensive heart disease. PAST SURGICAL HISTORY: 1. Adjustable gastric band placement and subsequent removal 2. Upper endoscopy 3. Lysis of adhesions HOME MEDICATIONS: Reviewed ALLERGIES: Reviewed SOCIAL HISTORY: Past tobacco use. FAMILY HISTORY: No family history of ulcerative colitis disease or Crohn's disease. Family history of morbid obesity. No lupus in the family. No reports of stomach or esophageal cancer. REVIEW OF ORGAN SYSTEMS: CONSTITUTIONAL: At height of 5 feet 3 inches, her ideal body weight is 140 pounds. Her highest weight 303 pounds, BMI 53.8. HEENT: Denies any active troubles with vision or hearing. ENDOCRINE: Has diabetes. Has hypothyroidism. CARDIOVASCULAR: Past reports of palpitations or heart attacks or chest pain. RESPIRATORY: Has daytime somnolence. GASTROINTESTINAL: Denies any bright red blood per rectum. Has gastroesophageal reflux disease. MUSCULOSKELETAL: Has lower back pain and joint pain. Has osteoarthritis of the knees. NEURO: No headaches. No seizure disorders. PSYCH: Has depression. No suicidal ideation. RHEUMATOLOGIC: No lupus. No rheumatoid arthritis. HEMATOLOGIC: Denies any abnormal bleeding or bruising. No personal history of DVTs. SKIN: Has rash. No skin cancer. PHYSICAL EXAM: VITAL SIGNS: Height 5 foot 4 inches, weight 270 pounds. BMI 46.3 GENERAL: Well-developed in no acute distress. HEENT: No scleral icterus. Extraocular movements grossly intact. Hears conversational speech. No nasal drainage. NECK: Supple without lymphadenopathy. CHEST: Nonlabored respirations with equal bilateral excursions. CARDIOVASCULAR: Regular rate and regular rhythm. Distal 2+ pulses. ABDOMEN: Obese, soft, nontender, nondistended. MUSCULOSKELETAL: No clubbing, cyanosis. NEURO: No focal or lateralizing signs. Cranial nerves 2 through 12 grossly within normal limits. PSYCH: Appropriate affect. Alert and oriented to person, place and time. SKIN: Good skin turgor. Well perfused. STUDIES: Ultrasound of the gallbladder dependent reviewed demonstrates fatty liver disease without gallstones. This is my independent interpretation. HIDA scan independent review demonstrates Gallbladder, ejection fraction of 90%. This is muscular. Interpretation. LABS: WBC within normal limits. LFTs within normal limits. EKG: Normal sinus rhythm, June 2022 Final Pathologic Diagnosis A. GASTRIC ANTRUM, BIOPSY: Mild chronic gastritis. Helicobacter pylori organisms are not identified on routine H+E sections. B. DUODENUM, BIOPSY: Benign small bowel mucosa with intact villous architecture, negative for histopathologic abnormality. ASSESSMENT: 1. Morbid obesity due to excess calories 2. Body mass index of 53.8 to 46.3 3. Osteoarthritis of the knees. 4. Osteoarthritis of the lower back. 5. Hypertensive heart disease. PLAN: 1. Bariatric options between a sleeve and a Mirtha-en-Y gastric bypass were reviewed in detail. The patient elected for a gastric bypass. Robotic assisted approach described. 2. The [place] [facility] Data was also reviewed with benefits and risks as described. 3. An 8 page second-generation bariatric consent form was reviewed in detail including potential of bleeding, infection, leaks, adequate weight loss, nutritional deficiencies which the patient demonstrated understanding of the risks. 4. A 2 week high-protein low caloric 800 kcal diet described to address hepatomegaly. 5. Preoperative labs including complete metabolic panel and CBC with type and screen recommended. 6. DVT prophylaxis per [place] [facility]. 7. Antibiotic prophylaxis. 8. Inpatient hospitalization anticipated for more than 2 nights. 9. All questions and concerns were addressed with the patient. 10. She is at elevated risk for perioperative complications due to recent prior gastric surgery included an adjustable gastric band and increased risk for leaks. 11. Overall, patient has expressed understanding of bariatric care including postoperative diet and commitment of lifestyle. Patient should benefit from surgical intervention for correction of her morbid obesity. 12. Recommend inpatient hospitalization due to high-risk procedure Past Medical History Past Medical History: Hyperlipidemia History of Any Multi-Drug Resistant Organisms: None Reported Past Surgical History: Bariatric Surgery Additional Past Surgical History / Comment(s): Lap band- 2008 WITH REMOVAL. lysis of adhesions 12/31/22. EGD Past Anesthesia/Blood Transfusion Reactions: No Reported Reaction Smoking Status: Never smoker - Past Family History Mother Family Medical History: No Reported History Father Family Medical History: Cancer Medications and Allergies Home Medications Medication Instructions Recorded Confirmed Type Semaglutide [Wegovy] 1 mg SQ SA 06/06/22 04/15/23 History Meloxicam 7.5 mg PO DAILY 07/25/22 04/15/23 History Collagen Gummy 1 dose PO DAILY 12/25/22 04/15/23 History Acetaminophen Tab [Tylenol Tab] 1,000 mg PO Q6HR PRN #30 tablet 12/31/22 04/15/23 Rx Fluticasone Nasal [place] [Flonase 2 spray EA NOSTRIL DAILY 01/02/23 04/15/23 History Nasal [place]] Glucosamine/Chondr [place] A Sod [Osteo 1 each PO DAILY 01/02/23 04/15/23 History Bi-Flex Caplet] Loratadine [Claritin] 10 mg PO DAILY 01/02/23 04/15/23 History Multivitamins, Thera [Multivitamin 1 tab PO DAILY 01/02/23 04/15/23 History (formulary)] [place]-3/Dha/Epa/Fish Oil [Fish Oil 1 each PO DAILY 01/02/23 04/15/23 History 1,000 mg Softgel] Soy Isofla/Blk [place]/Mag Bark 155 mg PO DAILY 01/02/23 04/15/23 History [Estroven 155 mg Capsule] Turmeric Root Extract [Turmeric] 500 mg PO DAILY 01/02/23 04/15/23 History Allergies Allergy/AdvReac Type Severity Reaction Status Date / Time No Known Allergies Allergy Verified 04/15/23 11:42
[2023-04-22] MEDS ORDERED: MIDAZOLAM 2 MG/2 ML VIAL IV PRN (07:20)
[2023-04-22] MEDS: ALVIMOPAN 12 MG CAPSULE PO PRN (07:59)
[2023-04-22] MEDS: LACTATED RINGERS 1,000 ML IV SCH (07:59)
[2023-04-22] MEDS: ACETAMINOPHEN TAB 500 MG TAB PO PRN (07:59)
[2023-04-22] MEDS: CHLORHEXIDINE GLUCONATE 15 ML CUP MUCOUS MEM PRN (07:59)
[2023-04-22] MEDS: SCOPOLAMINE 1 MG/72 HR PATCH TRANSDERM STA (08:00)
[2023-04-22] MEDS: PANTOPRAZOLE 40 MG/10 ML VIAL IVP PRN (08:00)
[2023-04-22] MEDS: ONDANSETRON 4 MG/2 ML VIAL IVP PRN (08:00)
[2023-04-22] MEDS: DEXAMETHASONE SOD PHOSPHATE 4 MG/ML 1 ML VIAL IVP ONE (08:00)
[2023-04-22] MEDS: HEPARIN SODIUM,PORCINE 5,000 UNIT/ML 1 ML VIAL SQ PRN (08:00)
[2023-04-22] MEDS ORDERED: HYDROmorphone (PF) 1 MG/ML ONE (08:49)
[2023-04-22] MEDS ORDERED: MIDAZOLAM 2 MG/2 ML VIAL ONE (08:49)
[2023-04-22] MEDS ORDERED: PROPOFOL 10 MG/ML 20 ML VIAL IV ONE (08:49)
[2023-04-22] MEDS ORDERED: NEOSTIGMINE 1 MG/ML 10 ML VIAL ONE (08:49)
[2023-04-22] MEDS ORDERED: GLYCOPYRROLATE 0.2 MG/ML 2 ML VIAL ONE (08:49)
[2023-04-22] MEDS ORDERED: fentaNYL (PF) 50 MCG/ML 2 ML AMP ONE (08:49)
[2023-04-22] MEDS ORDERED: SUCCINYLCHOLINE CHLORIDE 200 MG/10 ML VIAL IV ONE (08:49)
[2023-04-22] MEDS ORDERED: LIDOCAINE 1% INJ 10MG/ML (20 ML MDV) ONE (08:49)
[2023-04-22] MEDS ORDERED: ROCURONIUM 10 MG/ML (5 ML VIAL) IV ONE (08:49)
[2023-04-22] MEDS: ceFAZolin 3 GM in SODIUM CHLORIDE 0.9% 100 ML IVPB PRN (08:54)
[2023-04-22] MEDS: LIDOCAINE 1%-EPI 1:100,000 50 ML VIAL SQ ONE (08:54)
[2023-04-22] MEDS: LACTATED RINGERS 1,000 ML IV ONE (10:24)
[2023-04-22] MEDS ORDERED: NALOXONE 0.4 MG/ML 1 ML VIAL IV PRN (13:21)
[2023-04-22] MEDS ORDERED: diphenhydrAMINE 50 MG/ML 1 ML VIAL IVP PRN (13:23)
[2023-04-22] MEDS ORDERED: HYOSCYAMINE ORAL DROPS 1.875 MG/15 ML BOTTLE PO PRN (13:23)
[2023-04-22] MEDS: LABETALOL SYRINGE 5 MG/ML (4 ML SYR) IVP ONE (13:33)
[2023-04-22] MEDS: hydrALAZINE HCL 20 MG/ML 1 ML VIAL IVP ONE (14:35)
[2023-04-22 16:27] LABS: Glucose,Whole Blood 127 mg/dL (70-110)
[2023-04-22] MEDS: HYDROmorphone 0.5 MG/0.5 ML SYRINGE IVP PRN (16:35)
[2023-04-22] MEDS: ALBUTEROL NEBULIZED 2.5 MG/3 ML INHALATION SCH (16:56)
[2023-04-22] MEDS: 0.9% NACL WITH KCL 20 MEQ/L 1,000 ML IV SCH (17:13)
[2023-04-22] MEDS: ONDANSETRON 4 MG/2 ML VIAL IVP SCH (17:14)
[2023-04-22] MEDS: ceFAZolin 3 GM in SODIUM CHLORIDE 0.9% 100 ML IVPB SCH (17:14)
[2023-04-22] MEDS: droPERidol 5 MG/2 ML VIAL IVP ONE (17:43)
[2023-04-22] MEDS: ACETAMINOPHEN IV (For NPO) 1,000 MG in EMPTY BAG 1 BAG IVPB SCH (17:46)
[2023-04-22] MEDS: SIMETHICONE 80 MG CHEWABLE PO SCH (18:32)
[2023-04-22] MEDS: PANTOPRAZOLE 40 MG/10 ML VIAL IV SCH (20:33)
[2023-04-22 21:08] LABS: Glucose,Whole Blood 132 mg/dL (70-110)
--- NOTE | 2023-04-22 21:48 | P.OP ---
Date of Procedure: 04/22/23 Description of Procedure: SURGEON: KIKA RICHARD MD PREOPERATIVE DIAGNOSES: 1. Morbid obesity due to excess calories 2. Body mass index of 53.8 to 46.3 3. Osteoarthritis of the knees. 4. Osteoarthritis of the lower back. 5. Hypertensive heart disease. 6. History of peritoneal adhesions 7. History of adjustable gastric band status band removal POSTOPERATIVE DIAGNOSES: 1. Morbid obesity due to excess calories 2. Body mass index of 53.8 to 46.3 3. Osteoarthritis of the knees. 4. Osteoarthritis of the lower back. 5. Hypertensive heart disease. 6. History of peritoneal adhesions 7. History of adjustable gastric band status band removal 8. Perihepatic adhesions OPERATION: 1. Robotic assisted da Jalyn Xi laparoscopic Dunia-en-Y gastric bypass, 100 cm antecolic antegastric Dunia limb, with 25 mm EEA. 2. Robotic assisted da Jalyn Xi laparoscopic lysis of adhesions, extensive over 1.5 hours 3. Intraoperative esophagogastrojejunoscopy. ANESTHESIA: GETA and local ESTIMATED BLOOD LOSS: 20 mL SPECIMENS REMOVED: None. COMPLICATIONS: NONE. Operative Findings: 1. Biliopancreatic limb 60 cm 2. Bypass performed using 100 cm dunia limb secondary to avoid increased tension at 150 cm. 3. Jejunojejunostomy and De La Torre's defects closed using 2-0 V-LOC, green 4. Leak test negative with gastrojejunal anastomosis patent and hemostatic. 5. Reinforcement sutures were placed along the gastrojejunal anastomosis at 3:00, 9:00 and 12:00. 6. Prior gastric band capsule present with severe adhesions including stomach to liver adhesions 7. Total of 9 nikita INDICATIONS: Lyssa Haley is a 53 -year-old female who comes with lifelong morbid obesity. As result of morbid obesity, she has developed osteoarthritis of the hips and knees. She has completed medical supervised weight loss. She completed medical including cardiac assessment. She has completed psychological risk assessment. She had removal of adjustable gastric band including lysis of adhesions. She elected for gastric bypass with removal and increased risks. At height of 5 feet 3 inches, her ideal body weight is 140 pounds. Her highest weight 303 pounds, BMI 53.8. She comes in 270 pounds. Her body mass index is 46.3. She is 126 pounds overweight. A second-generation bariatric consent form was described in detail including the possibility of protein malnutrition, leaks, gastrojejunal stricture, venous thrombosis, need for further surgery for which she demonstrated understanding. Benefits and risks of the procedure were described at length. Informed consent was obtained. DESCRIPTION: The patient was brought into the operating room theater. She was placed supine. She had received heparin subcutaneously for DVT prophylaxis. Additionally Peridex oral solution as an oral decontaminant was placed per anesthesia. After general induction, the abdomen was prepped and draped in standard sterile fashion. Ioban draping was placed along the abdomen. De La Fuente catheter was avoided. A robotic da Jalyn Xi system was prepped and primed. Incisions were proposed at 15 cm from the xiphoid. Proposed port sites were marked with indelible marker along the anterior axillary line bilaterally, mid clavicular line bilaterally with each port marked 10 cm from each other. The robotic stapler port was marked for the right midclavicular line including along the left midclavicular line. A 5 mm 0 degrees laparoscopic trocar entry was performed along the left upper quadrant. The abdomen was insufflated to 15 mmHg pressure, which she tolerated well. Diagnostic laparoscopy demonstrated no injury to bowel, viscera, or mesentery. Mild hepatomegaly was found. Severe left upper quadrant adhesions were found omentum to abdominal wall. An 8 mm camera port was placed left lateral to the umbilicus at the epigastrium, 15 cm distal to the xiphoid. Next, 12-mm robot stapler port was placed along the right mid abdomen. An 12 mm port was exchanged along the left upper quadrant. An 8 mm port was placed on the left lateral abdominal wall under direct visualization Please note that the ports were placed 18 to 20 cm away from the target anatomy of the stomach. Care was taken to check that each robotic arm was safely away from collision with the bed or the patient. At the epigastrium, a medium sized Mark liver retractor was placed under direct visualization with the Iron Swing Type Lathe Operator placed under the right shoulder of the patient. The patient was repositioned in reverse Trendelenburg position at 25-degrees after lowering the bed. The robot was docked over the patient. Using grasper for arm 3, a grasper for arm 1, including vessel sealer for arm 4, the robotic system was docked and primed as described. Instruments were interchanged by the machine operator assistant including endoscissors, the needle clark driver, and stapler. I had sat at the console. Attention was brought to the stomach where severe adhesions were identified. The liver was adherent to the gastric band capsule. Careful sharp dissection using cautery was performed to release the liver from the stomach. The capsule was opened. The vessel sealer was used to control for bleeding. The prolapse stitch was identified and divided. Next, the stomach was prepared for division. Along the lesser curvature of the stomach, a black staple load was fired 5 cm distal to the hiatus. The stomach was divided between the hiatus and the spleen. The spleen was unharmed. The stomach was viable. Hemostasis was checked with the cautery. Extensive lysis of adhesions over 1.5 hours was performed. The gastric pouch was created. Next, the transverse mesocolon was reflected into the upper abdomen for the jejunojejunostomy portion of the case. The ligament of Treitz was identified and measured 60 cm antegrade and marked using 3-0 Silk. The jejunum was divided at the 60 cm point using 60-mm blue loads above the suture measurement. The biliopancreatic limb was held in place. The Dunia limb was measured 100 cm in an antegrade fashion to avoid tension along the proposed gastrojejunal anastomosis. At 100 cm along the anti-mesenteric border of the Dunia limb, a jejunojejunostomy was proposed whereby enterotomies were created along the biliopancreatic limb including the Dunia limb using a Bovie cautery. A stay suture of 3-0 Slik was placed to align and create the anastomosis. The enterotomies along the anti- mesenteric borders were created followed by unidirectional fire from the patient's right side using 60 mm blue loads [employer] technology robotic stapler. The jejunojejunostomy was found to be hemostatic. The enterotomy was closed after horizontal mattress stitch of 3-0 silk used to elevate the enterotomy followed by closure with the robotic stapler blue load. The jejunal limb was temporarily tacked along the left upper quadrant. Attention was now brought to the creation of the gastrojejunostomy. The patient was then prepared for placement of a Orvil. A 25-mm Orvil was selected for placement by the nurse prospecting driller. The Orvil tubing was placed posterior to the staple line of the gastric pouch and brought out through the left inferior lateral port. I re-scrubbed into the case. The robotic arms were temporarily undocked. The Orvil was then carefully and successfully navigated with the help of the nurse prospecting driller into the gastric pouch. The sutures were identified and divided. The tubing was from the 25 mm anvil. As the Orvil had been placed, the jejunal limb was brought proximally into the upper abdomen. No torsion was found upon the Dunia limb. No tension was identified as the limb was brought along the upper abdomen. The jejunal limb was previously opened using hook cautery. The 25-mm EEA stapler was brought through the left anterior lateral port site from the left side. The EEA stapler was brought through the open jejunal limb and its needle was deployed at the antimesenteric border where the anvil were mated for approximately 1 minute upon firing. The stapler was removed after irrigating the shaft of the instrument with warm normal saline. Donuts were found to be intact and on both sides. The da Jalyn Xi robot arms were then re-docked. I sat at the console. The open jejunal limb defect was closed using 60 mm blue loads after releasing any tension from the blind jejunal limb. No redundancy was present for jejunal limb. Reinforcement sutures were placed along the gastrojejunal anastomosis and placed along the 3:00, 9:00, 12:00 o'clock position using 3-0 Vicryl. The De La Torre and jejunojejunostomy mesenteric defect was closed using 2-0 V LOC, green. I then went to the head of the bed to perform the esophagogastrojejunoscopy and a leak test. An Olympus gastroscope was passed alongthe posterior oropharynx which was unremarkable for any injury to the vocal cords. The scope was passed down to the proximal portion of the pouch, whereby no active bleeding was encountered. Excellent visualization of the gastrojejunostomy anastomosis, including the Dunia limb was encountered with endoscopic image obtained. The anastomosis was found to be patent without active bleeding. Residual blood was suctioned from the gastric pouch. The gastrointestinal tract was desufflated. No evidence of intraoperative leak was encountered as the gastric pouch and anastomosis were submerged under normal saline solution. The robot was then undocked. I then went back to the bedside of the patient, whereby with coordinated effort of the machine operator assistant, irrigation was aspirated from the upper abdominal cavity. Tisseel was placed circumferentially over the anastomosis of the gastrojejunostomy. The fascial defect of the EEA stapler was closed using Ye Wiley and 0 Vicryl. All instruments and pneumoperitoneum were evacuated from the abdominal cavity. The port correlating with the EEA stapler device was cleansed with normal saline solution and hydrogen peroxide. The rest of incisions were reapproximated using 4-0 Monocryl in an interrupted subcuticular fashion. Local anesthetic was infiltrated along the skin for postop analgesia. Liquid glue was applied to the skin. OptiFoam dressing was placed along the EEA stapler site. At the end of the procedure, needle, sponge and instrument count had been verified correct by the ceramics technician. The patient had tolerated the procedure well and was extubated and taken to the postanesthesia unit in stable condition.
[2023-04-22] MEDS: HYDROmorphone 1 MG/ML 1 ML SYRINGE IVP PRN (23:08)
[2023-04-23 06:51] LABS: Glucose,Whole Blood 107 mg/dL (70-110)
[2023-04-23 08:51] LABS: Calcium 8.9 mg/dL (8.7-10.3); Chloride 105 mmol/L (96-109); Magnesium 1.9 mg/dL (1.5-2.4); Potassium 4.2 mmol/L (3.5-5.5); Sodium 138 mmol/L (135-145)
[2023-04-23] MEDS: LORATADINE 10 MG TAB PO SCH (09:00)
[2023-04-23] MEDS ORDERED: PANTOPRAZOLE 40 MG/10 ML VIAL IV SCH (09:00)
[2023-04-23] MEDS: 0.9% NACL WITH KCL 20 MEQ/L 1,000 ML IV SCH (09:01)
[2023-04-23] MEDS: FLUTICASONE 50MCG/SPRAY NASAL 16GM EA NOSTRIL SCH (10:00)
[2023-04-23 10:07] VITALS: BMI 46.4
[2023-04-23 10:11] LABS: Basophils # (A) 0.05 X 10*3/uL (0.00-0.10); Basophils % (A) 0.4 %; Eosinophils # (A) 0.19 X 10*3/uL (0.04-0.35); Eosinophils % (A) 1.5 %; HCT 39.3 % (37.2-46.3); HGB 12.9 g/dL (12.0-15.0); Lymphocytes # (A) 1.48 X 10*3/uL (0.90-5.00); Lymphocytes % (A) 11.7 %; MCH 30.2 pg (27.0-32.0); MCHC 32.8 g/dL (32.0-37.0); Mean Platelet Volume 11.1 FL (9.5-12.2); Monocytes # (A) 1.15 X 10*3/uL (0.20-1.00); Monocytes % (A) 9.1 %; NRBC Per 100 WBC 0 X 10*3/uL (0.00-0.01); Neutrophils # (A) 9.79 X 10*3/uL (1.80-7.70); Platelet Count 208 X 10*3/uL (140-440); RBC 4.27 X 10*6/uL (4.10-5.20); RDW 12.8 % (11.5-14.5)
[2023-04-23 11:34] LABS: Glucose,Whole Blood 115 mg/dL (70-110)
--- NOTE | 2023-04-23 12:19 | FL ---
Single contrast upper GI EXAMINATION TYPE: FL UGI DATE OF EXAM: 04/23/2023 10:41 AM CLINICAL HISTORY: Status post Mirtha-en-Y gastric bypass COMPARISON: NONE Contrast: 50ml Isovue 370 The patient ingested contrast without difficulty or delay. Noted are postsurgical changes of Mirtha-en -Y gastric bypass. There is no evidence for leak or obstruction. Drainage catheter is in place. IMPRESSION: Post-surgical change of Mirtha-en-Y gastric bypass without evidence for obstruction or tavo k at this point in time.
--- NOTE | 2023-04-23 16:40 | P.PN ---
Subjective Progress Note Date: 04/23/23 CHIEF COMPLAINT: Morbid obesity HISTORY OF PRESENT ILLNESS: Patient postop day #1 status post Mirtha-en-Y gastric bypass and lysis of adhesions. Patient does complain of abdominal pain. She still requiring the IV pain medication. She did have some mild nausea this morning that has improved. She reports small amount of flatus. She has been up and ambulating. She is tolerating the liquid diet. Upper GI reports postsurgical change of Mirtha-en-Y gastric bypass without evidence for obstruction or leak. Afebrile. WBC 12.7 Hgb 12.9 platelets 208 sodium is 1 3 potassium 4.2 creatinine 0.6 magnesium 1.9 phosphorus 3.0 PHYSICAL EXAM: VITAL SIGNS: Reviewed GENERAL: Well-developed in no acute distress. HEENT: No sclera icterus. Extraocular movements grossly intact. Moist buccal mucosa. Head is atraumatic, normocephalic. Hears conversational speech. No nasal drainage. NECK: Supple without lymphadenopathy. CHEST: Non-labored respirations and equal bilateral excursions. CARDIOVASCULAR: Palpable 2+ radial pulses. ABDOMEN: Soft. Nondistended. Nontender. MUSCULOSKELETAL: No clubbing or cyanosis. NEUROLOGIC: No focal or lateralizing signs. Cranial nerves II through XII grossly intact. PSYCH: Appropriate affect. Alert and oriented to person, place and time. SKIN: Well perfused. Good skin turgor. ASSESSMENT: 1. Morbid obesity due to excess calories 2. Body mass index of 53.8 to 46.3 3. Osteoarthritis of the knees. 4. Osteoarthritis of the lower back. 5. Hypertensive heart disease. 6. History of peritoneal adhesions 7. History of adjustable gastric band status band removal 8. Perihepatic adhesions 9. Leukocytosis PLAN: -Continue pain management -Continue bariatric clear liquid diet -Continue IV fluids -Encourage patient ambulate -Repeat CBC in a.m. -Anticipate discharge possibly tomorrow -DVT prophylaxis SCDs Physician Utility Arborist note has been reviewed by physician. Signing provider agrees with the documented findings, assessment, and plan of care. Objective - Vital Signs Vital signs: Vital Signs Temp 98.4 F 04/23/23 07:20 Pulse 90 04/23/23 12:29 Resp 18 04/23/23 07:20 BP 144/80 04/23/23 07:20 Pulse Ox 92 L 04/23/23 11:00 FiO2 21 04/22/23 16:59 Intake & Output 04/22/23 04/23/23 04/23/23 18:59 06:59 18:59 Intake Total 2024 Output Total 20 Balance 2004 Weight 122.8 kg 122.8 kg Intake: IV 2024 Output: Estimated Blood Loss 20 Other: Voiding Method Toilet # Voids 1 5 1 - Labs CBC & Chem 7: 04/23/23 06:02 04/23/23 06:02 Labs: Abnormal Lab Results - Last 24 Hours (Table) 04/22/23 04/22/23 04/23/23 Range/Units 16:26 21:06 06:02 WBC 12.70 H (4.50-10.00) X 10*3/uL Neutrophils # 9.79 H (1.80-7.70) X 10*3/uL Monocytes # 1.15 H (0.20-1.00) X 10*3/uL POC Glucose (mg/dL) 127 H 132 H (70-110) mg/dL 04/23/23 Range/Units 11:33 WBC (4.50-10.00) X 10*3/uL Neutrophils # (1.80-7.70) X 10*3/uL Monocytes # (0.20-1.00) X 10*3/uL POC Glucose (mg/dL) 115 H (70-110) mg/dL
[2023-04-23 16:42] LABS: Glucose,Whole Blood 102 mg/dL (70-110)
[2023-04-23] MEDS: HYDROcodone/APAP 5-325MG 1 EACH TAB PO PRN (21:20)
[2023-04-23] MEDS: ACETAMINOPHEN TAB 325 MG TAB PO PRN (23:46)
[2023-04-24] MEDS ORDERED: bisacodyL 5 MG TABLET.DR PO PRN (08:00)
[2023-04-24 08:06] VITALS: BP 130/82; RESP 17; TEMP 98.7
[2023-04-24 08:39] VITALS: PULSE 86
[2023-04-24 11:12] LABS: Basophils # (A) 0.05 X 10*3/uL (0.00-0.10); Basophils % (A) 0.4 %; Eosinophils # (A) 0.51 X 10*3/uL (0.04-0.35); Eosinophils % (A) 4.4 %; HCT 40.1 % (37.2-46.3); HGB 13.2 g/dL (12.0-15.0); Lymphocytes # (A) 1.61 X 10*3/uL (0.90-5.00); MCH 30.5 pg (27.0-32.0); MCHC 32.9 g/dL (32.0-37.0); MCV 92.6 FL (80.0-97.0); Mean Platelet Volume 10.8 FL (9.5-12.2); Monocytes # (A) 0.95 X 10*3/uL (0.20-1.00); Monocytes % (A) 8.3 %; NRBC Per 100 WBC 0 X 10*3/uL (0.00-0.01); Neutrophils # (A) 8.32 X 10*3/uL (1.80-7.70); Neutrophils % (A) 72.6 %; Platelet Count 217 X 10*3/uL (140-440); RBC 4.33 X 10*6/uL (4.10-5.20); WBC 11.47 X 10*3/uL (4.50-10.00)
[2023-04-24 11:50] LABS: Glucose,Whole Blood 83 mg/dL (70-110)
--- NOTE | 2023-04-24 14:24 | P.DS ---
Providers Date of admission: 04/22/23 06:56 Expected date of discharge: 04/24/23 Attending physician: Maya Dobson Primary care physician: Aura Fall Hospital Course: Discharge diagnosis 1. Morbid obesity due to excess calories 2. Body mass index of 53.8 to 46.3 3. Osteoarthritis of the knees. 4. Osteoarthritis of the lower back. 5. Hypertensive heart disease. 6. History of peritoneal adhesions 7. History of adjustable gastric band status band removal 8. Perihepatic adhesions Hospital course Lyssa Haley is a 53 -year-old female who comes with lifelong morbid obesity. As result of morbid obesity, she has developed osteoarthritis of the hips and knees. She is status post Robotic assisted da Jalyn Xi laparoscopic Mirtha-en-Y gastric bypass, 100 cm antecolic antegastric Mirtha limb and Robotic assisted da Jalyn Xi laparoscopic lysis of adhesions. She is tolerating diet. Her pain is controlled. Upper GI showed no evidence of leak or obstruction. She is afebrile. Denies any difficulty urinating. She is having flatus. She is afebrile. She is stable for discharge. Physician Sash Sticker note has been reviewed by physician. Signing provider agrees with the documented findings, assessment, and plan of care. Patient Condition at Discharge: Stable Plan - Discharge Summary Discharge Rx Participant: Yes New Discharge Prescriptions: New bisacodyL [Dulcolax] 5 mg PO DAILY PRN #10 tab PRN Reason: Constipation Simethicone 40 mg/0.6 ml Drops [Mylicon Drops] 40 mg PO PCHS PRN #30 ml PRN Reason: Gas Acetaminophen Tab [Tylenol] 1,000 mg PO Q6HR PRN #30 tablet PRN Reason: Pain Ondansetron Odt [Zofran Odt] 4 mg PO Q8HR PRN #9 tab PRN Reason: Nausea Omeprazole [PriLOSEC] 40 mg PO DAILY #30 cap Continue Loratadine [Claritin] 10 mg PO DAILY Fluticasone Nasal [place] [Flonase Nasal [place]] 2 spray EA NOSTRIL DAILY Discontinued Semaglutide [Wegovy] 1 mg SQ SA Multivitamins, Thera [Multivitamin (formulary)] 1 tab PO DAILY Dime Box-3/Dha/Epa/Fish Oil [Fish Oil 1,000 mg Softgel] 1 each PO DAILY Meloxicam 7.5 mg PO DAILY Collagen Gummy 1 dose PO DAILY Acetaminophen Tab [Tylenol Tab] 1,000 mg PO Q6HR PRN #30 tablet PRN Reason: Pain Turmeric Root Extract [Turmeric] 500 mg PO DAILY Soy Isofla/Blk Cohosh/Mag Bark [Estroven 155 mg Capsule] 155 mg PO DAILY Glucosamine/Chondr Cordero A Sod [Osteo Bi-Flex Caplet] 1 each PO DAILY Discharge Medication List Fluticasone Nasal [place] [Flonase Nasal [place]] 2 spray EA NOSTRIL DAILY 01/02/23 [History] Loratadine [Claritin] 10 mg PO DAILY 01/02/23 [History] Acetaminophen Tab [Tylenol] 1,000 mg PO Q6HR PRN #30 tablet 04/24/23 [Rx] Omeprazole [PriLOSEC] 40 mg PO DAILY #30 cap 04/24/23 [Rx] Ondansetron Odt [Zofran Odt] 4 mg PO Q8HR PRN #9 tab 04/24/23 [Rx] Simethicone 40 mg/0.6 ml Drops [Mylicon Drops] 40 mg PO PCHS PRN #30 ml 04/24/23 [Rx] bisacodyL [Dulcolax] 5 mg PO DAILY PRN #10 tab 04/24/23 [Rx] [place] [facility] [facility] [place] [place] [place] [facility] (Office is not answering. Please call for a follow-up appointment time.) Patient Instructions/Handouts: Mirtha-en-Y Gastric Bypass (DC) Activity/Diet/Wound Care/Special Instructions: Liquid diet only for 2 weeks No lifting over 4 pounds in 4 weeks, May Shower. No soaking in bath tubs for 2 weeks Please notify your surgeon if you develop nausea and vomiting including new onset of abdominal pain. Continue to use incentive spirometry to prevent pneumonias. Please continue to ambulate at home to prevent blood clots in legs. Follow-up at the bariatric center. May shower. Dressings to be discontinued by surgeon in the office. Drink 64 oz of fluid daily. Start protein shakes on . Notify bariatric center for temp over 101.0, increased pain, drainage from incisions. No straws or carbonated beverages. Liquid diet only. Sugar content should be less than 6 g to avoid dumping syndrome. Take MOM for constipation. CRUSH, OPEN, OR CUT TABLETS LARGER THAN A SIZE OF A TIC TAC Hold on taking any vitamins until seen by surgeon Discharge Disposition: HOME SELF-CARE
== END 2023-04-24 14:13 | disposition home or self-care (01) | DRG 403 ==
LOC: 2ORMAIN 04-22 06:56 → 4SSUR 04-22 14:34
PROVIDERS: ADMIT Surgery Plastic and Reconstructive Surgery; ATTEND Surgery Plastic and Reconstructive Surgery
PROC: 0DNW4ZZ Release Peritoneum, Percutaneous Endoscopic Approach (ICD-10-PCS; principal; 2023-04-22 08:20)
PROC: 0D164ZA Bypass Stomach to Jejunum, Percutaneous Endoscopic Approach (ICD-10-PCS; principal; 2023-04-22 08:20)
PROC: 0DJ08ZZ Inspection of Upper Intestinal Tract, Via Natural or Artificial Opening Endoscopic (ICD-10-PCS; principal; 2023-04-22 08:20)
PROC: 8E0W4CZ Robotic Assisted Procedure of Trunk Region, Percutaneous Endoscopic Approach (ICD-10-PCS; principal; 2023-04-22 08:20)
DX: E66.01 Morbid (severe) obesity due to excess calories (principal); Z68.42 Body mass index [BMI] 45.0-49.9, adult; M17.0 Bilateral primary osteoarthritis of knee; M47.9 Spondylosis, unspecified; M16.0 Bilateral primary osteoarthritis of hip; K66.0 Peritoneal adhesions (postprocedural) (postinfection); I11.9 Hypertensive heart disease without heart failure; E78.5 Hyperlipidemia, unspecified; Z79.1 Long term (current) use of non-steroidal anti-inflammatories (NSAID); Z87.891 Personal history of nicotine dependence
CPT/HCPCS: 74240; 80051; 81025; 82310; 82565; 83735; 84100; 84520; 85025; 94640; 94760

== ENCOUNTER → 2023-04-08 | Outpatient (CLI) | payer OTHER ==
[2023-04-08 15:05] LABS: Basophils # (A) 0.06 X 10*3/uL (0.00-0.10); Eosinophils # (A) 0.21 X 10*3/uL (0.04-0.35); Eosinophils % (A) 3.4 %; HCT 44.7 % (37.2-46.3); HGB 14.6 g/dL (12.0-15.0); Lymphocytes # (A) 2.12 X 10*3/uL (0.90-5.00); Lymphocytes % (A) 34.8 %; MCH 30.1 pg (27.0-32.0); MCHC 32.7 g/dL (32.0-37.0); MCV 92.2 FL (80.0-97.0); Mean Platelet Volume 10.2 FL (9.5-12.2); Monocytes # (A) 0.46 X 10*3/uL (0.20-1.00); Monocytes % (A) 7.5 %; NRBC Per 100 WBC 0 X 10*3/uL (0.00-0.01); Neutrophils # (A) 3.24 X 10*3/uL (1.80-7.70); Neutrophils % (A) 53.1 %; Platelet Count 265 X 10*3/uL (140-440); RBC 4.85 X 10*6/uL (4.10-5.20); RDW 12.5 % (11.5-14.5)
[2023-04-08 17:06] LABS: ALT 24 U/L (8-44); AST 18 U/L (13-35); Albumin 4.2 g/dL (3.8-4.9); Albumin/Globulin Ratio 1.17 Ratio (1.60-3.17); Alkaline Phosphatase 71 U/L (41-126); BUN/Creat Ratio 30.33 Ratio (12.00-20.00); Blood Urea Nitrogen 18.2 mg/dL (9.0-27.0); Calcium 9.6 mg/dL (8.7-10.3); Carbon Dioxide 19.1 mmol/L (21.6-31.8); Chloride 106 mmol/L (96-109); Globulin 3.6 g/dL (1.6-3.3); Glucose 91 mg/dL (70-110); Potassium 4.4 mmol/L (3.5-5.5); Sodium 139 mmol/L (135-145); Total Bilirubin 0.3 mg/dL (0.3-1.2); Total Protein 7.8 g/dL (6.2-8.2)
== END | disposition home or self-care (01) ==
LOC: LABPAT 08:45
PROVIDERS: ATTEND Surgery Plastic and Reconstructive Surgery
DX: Z01.812 Encounter for preprocedural laboratory examination (principal)
CPT/HCPCS: 80053; 85025

== ENCOUNTER → 2023-04-08 | Outpatient (CLI) | payer OTHER ==
--- NOTE | 2023-04-08 09:07 | US ---
EXAMINATION TYPE: US gallbladder DATE OF EXAM: 04/08/2023 COMPARISON: NONE CLINICAL INDICATION: Female, 53 years old with history of R94.5ABNORMAL RESULTS OF LIVER FUNCTION CARLOTA DIES; patient is having weight loss surgery and doctor wanted GB assessed before surgery, patient has no symptoms TECHNIQUE: Multiple sonographic images of the right upper quadrant are obtained. FINDINGS: EXAM MEASUREMENTS: Liver Length: 15.6 cm Gallbladder Wall: 0.3 cm CBD: 0.4 cm Right Kidney: 10.6 x 3.6 x 4.5 cm Pancreas: portions seen appear wnl Liver: difficult to penetrate , with increased attenuation no cystic structures or masses. No dilat ed ducts. Gallbladder: wnl Evidence for sonographic Winter's sign: no CBD: wnl Right Kidney: wnl IMPRESSION: 1. Hepatic steatosis. 2. No evidence for acute process.
== END | disposition home or self-care (01) ==
LOC: RADUSWWP 08:09
PROVIDERS: ATTEND Surgery Plastic and Reconstructive Surgery
DX: K76.0 Fatty (change of) liver, not elsewhere classified (principal); R94.5 Abnormal results of liver function studies
CPT/HCPCS: 76705

== ENCOUNTER → 2023-04-15 | Outpatient (CLI) | payer OTHER | END | disposition home or self-care (01) | LOC: LABPAT 12:12 | PROVIDERS: ATTEND Surgery Plastic and Reconstructive Surgery | DX: Z01.812 Encounter for preprocedural laboratory examination (principal); E66.9 Obesity, unspecified | CPT/HCPCS: 36415; 86850; 86900; 86901 ==

== ENCOUNTER → 2023-04-15 | Outpatient (CLI) | payer OTHER ==
--- NOTE | 2023-04-15 11:40 | NM ---
EXAMINATION TYPE: NM hepatobiliary w EF DATE OF EXAM: 04/15/2023 COMPARISON: NONE CLINICAL INDICATION: Female, 53 years old with history of R10.11 RIGHT UPPER QUADRANT PAIN; TECHNIQUE: After the intravenous administration of 5.1 mCi Tc 99m Mebrofenin hepatobiliary scintigrap hy is performed. Immediate images post injection. FINDINGS: There is satisfactory initial accumulation of tracer by the liver. The gallbladder is visualized wit hin 6 minutes. The small bowel activity is noted within 28 minutes. At one hour 8 ounces of oral en sure plus is given to mimic CCK and gallbladder ejection fraction is calculated at 96 %, elevated abo ve the expected range (35-80%). IMPRESSION: 1. No scintigraphic evidence for acute/chronic cholecystitis or biliary dyskinesia. 2. Increased gallbladder ejection fraction of 96% may be seen with gallbladder hyperkinesis.
== END | disposition home or self-care (01) ==
LOC: RADNMMAIN 06:51
PROVIDERS: ATTEND Surgery Plastic and Reconstructive Surgery
DX: R10.11 Right upper quadrant pain (principal)
CPT/HCPCS: 78226; A9537

== ENCOUNTER → 2023-06-03 | Outpatient (CLI) | payer OTHER ==
[2023-06-03 11:07] LABS: Prothrombin Time 10.6 sec (10.0-12.5)
[2023-06-03 11:08] LABS: Partial Thromboplastin Time 24.6 sec (22.0-30.0)
[2023-06-03 16:06] LABS: HCT 43.6 % (37.2-46.3); MCH 30.2 pg (27.0-32.0); MCHC 32.1 g/dL (32.0-37.0); MCV 94.2 FL (80.0-97.0); Mean Platelet Volume 11.2 FL (9.5-12.2); NRBC Per 100 WBC 0 X 10*3/uL (0.00-0.01); Platelet Count 232 X 10*3/uL (140-440); RBC 4.63 X 10*6/uL (4.10-5.20); RDW 13.7 % (11.5-14.5)
[2023-06-03 16:38] LABS: Prealbumin 22.5 mg/dL (18.0-42.0)
[2023-06-03 16:53] LABS: % Iron Saturation 26.25 (12.00-45.00); ALT 21 U/L (8-44); AST 17 U/L (13-35); Albumin 4.1 g/dL (3.8-4.9); Albumin/Globulin Ratio 1.32 Ratio (1.60-3.17); Alkaline Phosphatase 69 U/L (41-126); Blood Urea Nitrogen 17.7 mg/dL (9.0-27.0); Calcium 9.9 mg/dL (8.7-10.3); Carbon Dioxide 23.3 mmol/L (21.6-31.8); Chloride 106 mmol/L (96-109); Chol/HDL Ratio 3.08 Ratio; Globulin 3.1 g/dL (1.6-3.3); Glucose 93 mg/dL (70-110); Iron 79 UG/DL (50-170); LDL Cholesterol,Calculated 80.5 mg/dL (0.0-131.0); Magnesium 1.8 mg/dL (1.5-2.4); Phosphorus 3.4 mg/dL (2.4-5.1); Potassium 4.4 mmol/L (3.5-5.5); Sodium 140 mmol/L (135-145); Total Bilirubin 0.4 mg/dL (0.3-1.2); Total Iron Binding Capacity 301 UG/DL (228-460); Total Protein 7.2 g/dL (6.2-8.2)
[2023-06-03 16:54] LABS: Ferritin 49.1 ng/mL (10.0-291.0)
[2023-06-04 11:38] LABS: Zinc, Serum 128 ug/dL (60-130)
[2023-06-05 06:42] LABS: Vitamin A 52 ug/dL (38-106)
[2023-06-05 10:02] LABS: Vit B1(Thiamine) 69 ug/L (38-122)
== END | disposition home or self-care (01) ==
LOC: LABWHC1 10:09
PROVIDERS: ATTEND Surgery Plastic and Reconstructive Surgery
DX: E89.1 Postprocedural hypoinsulinemia (principal); E66.01 Morbid (severe) obesity due to excess calories; D50.8 Other iron deficiency anemias; K91.2 Postsurgical malabsorption, not elsewhere classified; E44.0 Moderate protein-calorie malnutrition; E44.1 Mild protein-calorie malnutrition; E45 Retarded development following protein-calorie malnutrition; E55.9 Vitamin D deficiency, unspecified; K74.1 Hepatic sclerosis; N19 Unspecified kidney failure; T56.894A Toxic effect of other metals, undetermined, initial encounter; K50.90 Crohn's disease, unspecified, without complications
CPT/HCPCS: 36415; 80053; 80061; 82306; 82525; 82607; 82728; 82746; 83036; 83540; 83550; 83735; 83970; 84100; 84134; 84255; 84425; 84443; 84590; 84630; 85027; 85610; 85730

== ENCOUNTER → 2023-07-31 | Outpatient (CLI) | payer OTHER ==
--- NOTE | 2023-07-31 14:03 | P.BASOAP ---
Subjective Progress Note Date: 07/31/23 She feels great! No belly hurt. No heartburn. She is grazing and eating at night. She is a coffee drinking and creamer. She is drinking 60 grams of protein in the mornining. She is getting 100 grams. She sodium rich foods and chips. Using Alive. Objective - Vital Signs Vital signs: Vital Signs Temp 98 F 07/31/23 13:32 Pulse 69 07/31/23 13:32 Resp 13 07/31/23 13:32 BP 150/90 07/31/23 13:32 Pulse Ox FiO2 Intake & Output 07/30/23 07/31/23 07/31/23 18:59 06:59 18:59 Weight 113.852 kg Assessment/Plan Plan: Date: 07/31/23 Initial Weight: Initial BMI: Current Weight: 113.852 kg Current BMI: 44.4 Type of Surgery: Total Volume in Band: Previous Volume: Volume Removed: Volume Added: Band Size:
[2023-07-31 14:29] VITALS: BP 150/90; PULSE 69; RESP 13; TEMP 98; BMI 44.4
[2023-07-31 14:53] LABS: INR 0.9 (<1.2); Partial Thromboplastin Time 25.1 sec (22.0-30.0); Prothrombin Time 10.2 sec (10.0-12.5)
[2023-07-31 19:11] LABS: HCT 45.5 % (37.2-46.3); HGB 14.6 g/dL (12.0-15.0); MCH 29.4 pg (27.0-32.0); MCHC 32.1 g/dL (32.0-37.0); MCV 91.7 FL (80.0-97.0); Mean Platelet Volume 10.5 FL (9.5-12.2); NRBC Per 100 WBC 0 X 10*3/uL (0.00-0.01); Platelet Count 284 X 10*3/uL (140-440); RBC 4.96 X 10*6/uL (4.10-5.20); RDW 12.6 % (11.5-14.5); WBC 6.32 X 10*3/uL (4.50-10.00)
[2023-07-31 23:00] LABS: Prealbumin 22.5 mg/dL (18.0-42.0)
[2023-07-31 23:17] LABS: ALT 24 U/L (8-44); AST 24 U/L (13-35); Albumin 4.5 g/dL (3.8-4.9); Albumin/Globulin Ratio 1.45 Ratio (1.60-3.17); Alkaline Phosphatase 77 U/L (41-126); BUN/Creat Ratio 29.71 Ratio (12.00-20.00); Blood Urea Nitrogen 20.8 mg/dL (9.0-27.0); Calcium 10.1 mg/dL (8.7-10.3); Carbon Dioxide 21.5 mmol/L (21.6-31.8); Chloride 102 mmol/L (96-109); Chol/HDL Ratio 3.13 Ratio; Ferritin 35.4 ng/mL (10.0-291.0); Globulin 3.1 g/dL (1.6-3.3); Glucose 100 mg/dL (70-110); Iron 73 UG/DL (50-170); LDL Cholesterol,Calculated 92.8 mg/dL (0.0-131.0); Magnesium 1.8 mg/dL (1.5-2.4); Phosphorus 4.4 mg/dL (2.4-5.1); Potassium 4.8 mmol/L (3.5-5.5); Sodium 138 mmol/L (135-145); Total Bilirubin 0.3 mg/dL (0.3-1.2); Total Iron Binding Capacity 346 UG/DL (228-460); Total Protein 7.6 g/dL (6.2-8.2)
[2023-08-01 12:55] LABS: Zinc, Serum 74 ug/dL (60-130)
[2023-08-02 05:53] LABS: Vitamin A 58 ug/dL (38-106)
[2023-08-03 19:33] LABS: Selenium 116 mcg/L (63-160)
[2023-08-05 15:19] LABS: Vit B1(Thiamine) 68 ug/L (38-122)
== END | disposition home or self-care (01) ==
LOC: BARWHC3 13:11
PROVIDERS: ATTEND Surgery Plastic and Reconstructive Surgery
DX: E66.01 Morbid (severe) obesity due to excess calories (principal); E89.1 Postprocedural hypoinsulinemia; D50.8 Other iron deficiency anemias; K91.2 Postsurgical malabsorption, not elsewhere classified; E44.0 Moderate protein-calorie malnutrition; E45 Retarded development following protein-calorie malnutrition; E55.9 Vitamin D deficiency, unspecified; K74.1 Hepatic sclerosis; N19 Unspecified kidney failure; K50.90 Crohn's disease, unspecified, without complications; T56.894A Toxic effect of other metals, undetermined, initial encounter; Z71.3 Dietary counseling and surveillance; Z87.891 Personal history of nicotine dependence; Z68.41 Body mass index [BMI] 40.0-44.9, adult
CPT/HCPCS: 84255; 84134; 84425; 80061; 80053; 82607; 82728; 82525; 82746; 83540; 83550; 83735; 84100; 84443; 84590; 84630; 85027; 85610; 85730; 82306; 83970; 83036; 97803; G0463; 99211

== ENCOUNTER → 2023-10-30 | Outpatient (CLI) | payer OTHER | END | disposition home or self-care (01) | LOC: LABWHC1 14:13 | PROVIDERS: ATTEND Surgery Plastic and Reconstructive Surgery | DX: E89.1 Postprocedural hypoinsulinemia (principal); E66.01 Morbid (severe) obesity due to excess calories; D50.8 Other iron deficiency anemias; D50.9 Iron deficiency anemia, unspecified; K91.2 Postsurgical malabsorption, not elsewhere classified; E44.0 Moderate protein-calorie malnutrition; E44.1 Mild protein-calorie malnutrition; E45 Retarded development following protein-calorie malnutrition; E46 Unspecified protein-calorie malnutrition; E55.9 Vitamin D deficiency, unspecified; K74.1 Hepatic sclerosis; N19 Unspecified kidney failure; T56.894A Toxic effect of other metals, undetermined, initial encounter; K50.90 Crohn's disease, unspecified, without complications | CPT/HCPCS: 36415; 80053; 80061; 82306; 82525; 82607; 82728; 82746; 83036; 83540; 83550; 83735; 83970; 84100; 84134; 84255; 84425; 84443; 84590; 84630; 85027 ==

== ENCOUNTER → 2024-01-29 | Outpatient (CLI) | payer OTHER ==
[2024-01-29 15:03] LABS: INR 0.9 (<1.2); Prothrombin Time 10.4 sec (10.0-12.5)
[2024-01-29 15:04] LABS: Partial Thromboplastin Time 24.4 sec (22.0-30.0)
[2024-01-29 18:16] LABS: HCT 43.2 % (37.2-46.3); HGB 14.3 g/dL (12.0-15.0); MCH 30.1 pg (27.0-32.0); MCHC 33.1 g/dL (32.0-37.0); MCV 90.9 FL (80.0-97.0); Mean Platelet Volume 10.9 FL (9.5-12.2); NRBC Per 100 WBC 0 X 10*3/uL (0.00-0.01); Platelet Count 278 X 10*3/uL (140-440); RBC 4.75 X 10*6/uL (4.10-5.20); RDW 12.8 % (11.5-14.5); WBC 8.66 X 10*3/uL (4.50-10.00)
[2024-01-29 19:41] LABS: % Iron Saturation 21.92 (12.00-45.00); ALT 20 U/L (8-44); AST 20 U/L (13-35); Albumin 4.1 g/dL (3.8-4.9); Albumin/Globulin Ratio 1.14 Ratio (1.60-3.17); Alkaline Phosphatase 85 U/L (41-126); Blood Urea Nitrogen 18.3 mg/dL (9.0-27.0); Calcium 9.4 mg/dL (8.7-10.3); Carbon Dioxide 23.1 mmol/L (21.6-31.8); Chloride 105 mmol/L (96-109); Globulin 3.6 g/dL (1.6-3.3); Glucose 98 mg/dL (70-110); Iron 73 UG/DL (50-170); Magnesium 1.8 mg/dL (1.5-2.4); Phosphorus 3.5 mg/dL (2.4-5.1); Potassium 4.1 mmol/L (3.5-5.5); Sodium 139 mmol/L (135-145); Total Bilirubin 0.3 mg/dL (0.3-1.2); Total Iron Binding Capacity 333 UG/DL (228-460); Total Protein 7.7 g/dL (6.2-8.2)
[2024-01-30 11:55] LABS: Zinc, Serum 80 ug/dL (60-130)
[2024-01-31 06:34] LABS: Vitamin A 64 ug/dL (38-106)
[2024-01-31 11:13] LABS: Vit B1(Thiamine) 64 ug/L (38-122)
== END | disposition home or self-care (01) ==
LOC: LABWHC1 14:26
PROVIDERS: ATTEND Surgery Plastic and Reconstructive Surgery
DX: E89.1 Postprocedural hypoinsulinemia (principal); D50.8 Other iron deficiency anemias; K91.2 Postsurgical malabsorption, not elsewhere classified; E44.0 Moderate protein-calorie malnutrition; E44.1 Mild protein-calorie malnutrition; E45 Retarded development following protein-calorie malnutrition; E46 Unspecified protein-calorie malnutrition; E55.9 Vitamin D deficiency, unspecified; K74.1 Hepatic sclerosis; N19 Unspecified kidney failure; T56.894A Toxic effect of other metals, undetermined, initial encounter; K50.90 Crohn's disease, unspecified, without complications
CPT/HCPCS: 36415; 80053; 80061; 82306; 82525; 82607; 82746; 83036; 83540; 83550; 83735; 83970; 84100; 84134; 84255; 84425; 84443; 84590; 84630; 85027; 85610; 85730

== ENCOUNTER → 2024-01-29 | Outpatient (CLI) | payer OTHER ==
[2024-01-29 13:30] VITALS: BMI 42.8
[2024-01-29 13:38] VITALS: BP 156/97; PULSE 71; RESP 16; TEMP 97.8
--- NOTE | 2024-01-29 14:10 | P.BASOAP ---
Subjective Progress Note Date: 01/29/24 She had labs and lost in October downtime. Face is skinny. No abdominal pain. Risk of internal hernia. She was on Wegovy and wants to be on and is okay. She is on probiotic and 80 gram and 80 oz of fluids. Objective - Vital Signs Vital signs: Vital Signs Temp 97.8 F 01/29/24 13:25 Pulse 71 01/29/24 13:25 Resp 16 01/29/24 13:25 BP 156/97 01/29/24 13:25 Pulse Ox FiO2 Intake & Output 01/28/24 01/29/24 01/29/24 18:59 06:59 18:59 Weight 109.769 kg Assessment/Plan Plan: Date: 01/29/24 Initial Weight: Initial BMI: Current Weight: 109.769 kg Current BMI: 42.8 Type of Surgery: Total Volume in Band: Previous Volume: Volume Removed: Volume Added: Band Size:
== END ==
LOC: BARWHC3 11:40
PROVIDERS: ATTEND Surgery Plastic and Reconstructive Surgery
DX: E66.01 Morbid (severe) obesity due to excess calories (principal); Z68.41 Body mass index [BMI] 40.0-44.9, adult; Z87.891 Personal history of nicotine dependence
CPT/HCPCS: 99211